=== PATIENT | male | born 1970 | race Caucasian/White ===

== ENCOUNTER 2021-05-30 15:05 | Emergency (ER) | payer OTHER ==
[~2021-05-30] VITALS: Ht 175.3 cm; Wt 113.4 kg
[~2021-05-30 15:05] MED LIST: FLUO40CA; NIAC-10; SIMV-13; TRAZ100T3
[2021-05-30] MEDS ORDERED: HYDR-3682 PO (15:50)
[2021-05-30 18:17] LABS: Basophils # (auto) 0.1 10 ^3/uL (0-0.2); Basophils % (auto) 0.4 % (0.0-2.0); Eosinophils # (auto) 0.2 10 ^3/uL (0-0.8); Eosinophils % (auto) 1.3 % (0.0-7.0); Hematocrit 52.4 % (41.0-53.0); Hemoglobin 18.4 g/dL (13.5-17.5); Lymphocytes # (auto) 2.4 10 ^3/uL (0.4-5.4); Lymphocytes % (auto) 19.7 % (10.0-50.0); Mean Corpuscular Hemoglobin 34.5 pg (28.0-32.0); Mean Corpuscular Hgb Conc. 35.1 g/dL (32.0-36.0); Mean Corpuscular Volume 98.2 fL (80.0-100.0); Monocytes # (auto) 0.8 10 ^3/uL (0-1.3); Monocytes % (auto) 6.5 % (0.0-12.0); Neutrophils # (auto) 8.6 10 ^3/uL (1.6-8.6); Neutrophils % (auto) 72.1 % (37.0-80.0); Nucleated Red Blood Cells % 0.1 %; Red Blood Cells 5.34 10^6/uL (4.5-5.90); Red Cell Distribution Width 13.3 % (11.8-14.3)
[2021-05-30 18:32] LABS: Potassium 4.3 mmol/L (3.5-5.1)
[2021-05-30 18:34] LABS: BUN/Creatinine Ratio 14.7
[2021-05-30 20:00] VITALS: BP 133/86
== END 2021-05-30 20:29 | disposition left against medical advice (07) ==
LOC: ER 15:05
DX: F41.9 Anxiety disorder, unspecified (principal); F17.210 Nicotine dependence, cigarettes, uncomplicated; F32.9 Major depressive disorder, single episode, unspecified; R94.31 Abnormal electrocardiogram [ECG] [EKG]; E78.5 Hyperlipidemia, unspecified; Z88.6 Allergy status to analgesic agent
CPT/HCPCS: 36415; 71046; 80048; 84443; 85025; 93005

== ENCOUNTER 2021-12-05 18:00 | Emergency (ER) | payer OTHER ==
[~2021-12-05] VITALS: Ht 175.3 cm; Wt 108.9 kg
[~2021-12-05 18:00] MED LIST changes: +HYDR-3682 PO
[2021-12-05] MEDS ORDERED: ALPRAZolam 0.5 MG TAB PO ONE (21:30)
[2021-12-05 22:07] VITALS: BP 124/76
[2021-12-05 22:30] LABS: Basophils # (auto) 0.1 10 ^3/uL (0-0.2); Basophils % (auto) 1.3 % (0.0-2.0); Eosinophils # (auto) 0.2 10 ^3/uL (0-0.8); Eosinophils % (auto) 2.1 % (0.0-7.0); Hematocrit 44.9 % (41.0-53.0); Hemoglobin 15.9 g/dL (13.5-17.5); Lymphocytes # (auto) 3.5 10 ^3/uL (0.4-5.4); Lymphocytes % (auto) 31.3 % (10.0-50.0); Mean Corpuscular Hemoglobin 35.1 pg (28.0-32.0); Mean Corpuscular Hgb Conc. 35.5 g/dL (32.0-36.0); Mean Corpuscular Volume 98.8 fL (80.0-100.0); Monocytes # (auto) 0.8 10 ^3/uL (0-1.3); Monocytes % (auto) 6.9 % (0.0-12.0); Neutrophils # (auto) 6.5 10 ^3/uL (1.6-8.6); Neutrophils % (auto) 58.4 % (37.0-80.0); Nucleated Red Blood Cells % 0.1 %; Red Blood Cells 4.54 10^6/uL (4.5-5.90); Red Cell Distribution Width 13.1 % (11.8-14.3); White Blood Cell 11.2 10^3/uL (4.4-10.8)
[2021-12-05 22:54] LABS: Potassium 4.1 mmol/L (3.5-5.1)
[2021-12-05 22:59] LABS: BUN/Creatinine Ratio 13.9; Calcium 11.4 mg/dL (8.5-10.1)
== END 2021-12-06 02:22 | disposition home or self-care (01) ==
LOC: ER 18:13
DX: F41.9 Anxiety disorder, unspecified (principal); F32.9 Major depressive disorder, single episode, unspecified; E78.5 Hyperlipidemia, unspecified; F17.210 Nicotine dependence, cigarettes, uncomplicated; Z88.6 Allergy status to analgesic agent
CPT/HCPCS: 36415; 80048; 84443; 85025

== ENCOUNTER 2021-12-18 15:48 | Emergency (ER) | payer OTHER ==
[~2021-12-18] VITALS: Ht 175.3 cm; Wt 108.9 kg
[2021-12-18] MEDS ORDERED: LORA0.5T20 PO (16:18)
[2021-12-18 16:25] VITALS: BP 125/74
[2021-12-18] MEDS: LORazepam 0.5 MG TAB PO ONE (16:34)
== END 2021-12-18 16:40 | disposition home or self-care (01) ==
LOC: ER 15:48
DX: F41.9 Anxiety disorder, unspecified (principal); F32.9 Major depressive disorder, single episode, unspecified; E78.5 Hyperlipidemia, unspecified; F17.210 Nicotine dependence, cigarettes, uncomplicated; Z88.8 Allergy status to other drugs, medicaments and biological substances

== ENCOUNTER 2022-01-17 11:50 | Emergency (ER) | payer OTHER ==
[~2022-01-17] VITALS: Ht 175.3 cm; Wt 110.0 kg
[~2022-01-17 11:50] MED LIST changes: +LORA0.5T20 PO
[2022-01-17] MEDS ORDERED: SODIUM CHLORIDE 0.9% 1,000 ML IV ONE ×2 (12:00)
[2022-01-17 12:43] LABS: Basophils # (auto) 0.1 10 ^3/uL (0-0.2); Basophils % (auto) 0.5 % (0.0-2.0); Eosinophils # (auto) 0.1 10 ^3/uL (0-0.8); Eosinophils % (auto) 1.2 % (0.0-7.0); Hematocrit 48.4 % (41.0-53.0); Hemoglobin 16.1 g/dL (13.5-17.5); Lymphocytes # (auto) 2.5 10 ^3/uL (0.4-5.4); Lymphocytes % (auto) 20.2 % (10.0-50.0); Mean Corpuscular Hemoglobin 32.9 pg (28.0-32.0); Mean Corpuscular Hgb Conc. 33.4 g/dL (32.0-36.0); Mean Corpuscular Volume 98.8 fL (80.0-100.0); Monocytes # (auto) 0.8 10 ^3/uL (0-1.3); Monocytes % (auto) 6.9 % (0.0-12.0); Neutrophils # (auto) 8.8 10 ^3/uL (1.6-8.6); Neutrophils % (auto) 71.2 % (37.0-80.0); Nucleated Red Blood Cells % 0.1 %; Red Cell Distribution Width 13.6 % (11.8-14.3); White Blood Cell 12.3 10^3/uL (4.4-10.8)
[2022-01-17 12:58] LABS: Albumin 3.8 g/dL (3.4-5.0); Calcium 11.4 mg/dL (8.5-10.1); Potassium 4.3 mmol/L (3.5-5.1)
[2022-01-17 13:02] LABS: BUN/Creatinine Ratio 13.1; Bilirubin, Total 0.3 mg/dL (0.2-1.0); Total Protein 7.2 g/dL (6.4-8.2)
[2022-01-17 14:45] VITALS: BP 122/74
== END 2022-01-17 13:59 | disposition home or self-care (01) ==
LOC: ER 11:50 → EDBD 11:50 → ER 13:59
DX: K40.90 Unilateral inguinal hernia, without obstruction or gangrene, not specified as recurrent (principal); N20.0 Calculus of kidney; I10 Essential (primary) hypertension; E78.5 Hyperlipidemia, unspecified; M10.9 Gout, unspecified; F17.210 Nicotine dependence, cigarettes, uncomplicated; Z79.899 Other long term (current) drug therapy; Z88.8 Allergy status to other drugs, medicaments and biological substances
CPT/HCPCS: 36415; 74176; 80053; 85025; 93005; 96360; 99285; J7030

== ENCOUNTER 2024-10-08 15:17 | Emergency (ER) | payer OTHER, MEDICAID ==
[~2024-10-08] VITALS: Ht 175.3 cm; Wt 116.0 kg
[~2024-10-08 15:17] MED LIST changes: +LORA-1121 PO; -LORA0.5T20 PO; -SIMV-13; +SIMV40TA18; +TRAZ-228; -TRAZ100T3
--- NOTE | 2024-10-08 15:56 | ED.PDOC ---
Psychiatric HPI Comments 53 year old male presents to the ED with chief complaint of SI. Patient reports that he has been having suicidal ideation for the past 5 days, being stressed mainly by a chronic pain to his left arm. Patient relays that he has had thoughts of SI in the past. Patient states he used to be on psych medication, however, he states they don't help him and he is no longer on them. Patient denies any other stressors, HI, AH, VH, dizziness, chest pain, or SOB. Time Seen by MD: 15:51 Primary Care Provider: none Reviewed Notes: Nurses Notes, Medications, Allergies Information Source: Patient Mode of Arrival: Ambulatory Severity: Able to Care for Self, Able to Control Self Severity of Pain: None Severity of Mental Status: Moderate Severity of Symptoms: Moderate Timing: Days Duration: Since onset Prehospital treatment: None Presents with: Depression, Suicidal Ideation Ingestion: None Circumstance: None Current substance abuse: None Stressors: None History of: Depression, Anxiety Past Medical History PAST MEDICAL HISTORY: Anxiety, Depression, Gout, High Lipids, HTN, Kidney Stones Surgical History (Other): Rt testicular surgery Family History Family History: Reviewed,noncontributory to illness Social History Smoker: Cigarettes, Greater Than 1 Pack/Day Alcohol: Denies ETOH Use Drugs: Denies Drug Use Lives In: Home Constitutional: denies: chills, diaphoresis, fatigue, fever, malaise, sweats, weakness, others EENTM: denies: blurred vision, double vision, ear bleeding, ear discharge, ear drainage, ear pain, ear ringing, eye pain, eye redness, hearing loss, mouth pain, mouth swelling, nasal discharge, nose bleeding, nose congestion, nose pain, photophobia, tearing, throat pain, throat swelling, voice changes, others Respiratory: denies: cough, hemoptysis, orthopnea, SOB at rest, shortness of breath, SOB with excertion, stridor, wheezing, others Cardiovascular: denies: chest pain, dizzy spells, diaphoresis, Dyspnea on exertion, edema, irregular heart beat, left arm pain, lightheadedness, palpitations, PND, syncope, others Gastrointestinal: denies: abdomen distended, abdominal pain, blood streaked bowels, constipated, diarrhea, dysphagia, difficulty swallowing, hematemesis, melena, nausea, poor appetite, poor fluid intake, rectal bleeding, rectal pain, vomiting, others Genitourinary: denies: burning, dysuria, flank pain, frequency, hematuria, incontinence, penile discharge, penile sore, pain, testicle pain, testicle swelling, urgency, others Neurological: denies: dizziness, fainting, headache, left sided numbness, left sided weakness, numbness, paresthesia, pre-existing deficit, right sided numbness, right sided weakness, seizure, speech problems, tingling, tremors, weakness, others Musculoskeletal: reports: others (Left arm pain); denies: back pain, gout, joint pain, joint swelling, muscle pain, muscle stiffness Integumetry: denies: bruises, change in color, change in hair/nails, dryness, laceration, lesions, lumps, rash, wounds, others Allergic/Immunocompromised: denies: Difficulty Healing, Frequent Infections, Hives, Itching, others Hematologic/Lymphatic: denies: anemia, blood clots, easy bleeding, easy bruising, swollen glands, others Endocrine: denies: excessive hunger, excessive sweating, excessive thirst, excessive urination, flushing, intolerance to cold, intolerance to heat, unexplained weight gain, unexplained weight loss, others Psychiatric: reports: suicidal; denies: anxiety, bipolar disorder, depression, hopeless, panic disorder, schizophrenia, sleepless, others All Other Systems: Reviewed and Negative Physical Exam General Appearance: Mild Distress HEENT: Normal ENT Inspection, Pharynx Normal, TMs Normal Neck: Full Range of Motion, Non-Tender, Normal, Normal Inspection Respiratory: Chest Non-Tender, Lungs Clear, No Accessory Muscle Use, No Respiratory Distress, Normal Breath Sounds Cardiovascular: No Edema, No JVD, No Murmur, No Gallop, Normal Peripheral Pulses, Regular Rate/Rhythm Breast Exam: Deferred Gastrointestinal: No Organomegaly, Non Tender, No Pulsatile Mass, Normal Bowel Sounds, Soft Genitalia: Deferred Pelvic: Deferred Rectal: Deferred Extremities: No calf tenderness, Normal capillary refill, Normal inspection, Normal range of motion, Non-tender, No pedal edema Musculoskeletal : Apperance: Normal Neurologic: Alert, 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 Was a procedure done?: No Psych Differential Dx Psych. Differential Dx: Suicidal Suicidal Differential Dx: Depression X-Ray, Labs, Meds, VS Vital Signs Date Time Temp Pulse Resp B/P (MAP) Pulse Ox O2 Delivery O2 Flow Rate FiO2 10/08/24 18:04 98.9 10/08/24 15:24 98.5 85 18 137/99 (112) 96 98.5 Lab Test 10/08/24 16:15 10/08/24 15:42 Range/Units Sodium Level 139 136-145 mmol/L Potassium Level 4.5 3.5-5.1 mmol/L Chloride Level 107 98-107 mmol/L Carbon Dioxide Level 25 20-31 mmol/L Anion Gap 7 5-15 Blood Urea Nitrogen 9 9-23 mg/dL Creatinine 1.16 0.700-1.30 mg/dL Glomerular Filtration Rate Calc 75 >90 mL/min BUN/Creatinine Ratio 7.8 L 10.0-20.0 Serum Glucose 141 H 74-106 mg/dL Calcium Level 12.7 H 8.7-10.4 mg/dL Plasma/Serum Blood Alcohol Pending Urine Color Yellow Yellow Urine Clarity Clear Clear Urine pH 6.5 5.0-9.0 Urine Specific [place] 1.014 1.001-1.035 Urine Protein Negative Negative Urine Ketones Negative Negative Urine Blood Negative Negative /uL Urine Nitrite Negative Negative Urine Bilirubin Negative Negative Urine Urobilinogen Normal Negative mg/dL Urine Leukocyte Esterase 1+ Negative /uL Urine RBC 1 0 - 3 /hpf Urine Microscopic WBC 6 H 0-3 /HPF Urine Squamous Epithelial Cells Few <5 /hpf Urine Bacteria None seen None Seen /hpf Urine Glucose Normal Normal mg/dL Urine Opiates Screen Pending Urine Fentanyl Screen Pending Urine Barbiturates Screen Pending Urine Phencyclidine Screen Pending Urine Amphetamines Screen Pending Urine Benzodiazepines Screen Pending Urine Cocaine Screen Pending Urine Cannabinoids Screen Pending Current Medications Medications (Trade) Dose Ordered Sig/Dhaval Route Start Time Stop Time Status Last Admin Acetaminophen (Tylenol Tablet) 650 mg ONCE ONCE PO 10/08/24 18:00 10/08/24 18:01 DC 10/08/24 18:04 The patient was given acetaminophen 650 mg by mouth The urine test is positive for a UTI The patient was given Cipro here in the emergency department's The patient's chemistry panel is within normal limits The glucose is 141 The patient was medically cleared The patient is awaiting a telemedicine psychiatry consult The patient will be signed out to Dr. Gold Images Reviewed?: Images reviewed and evaluated by me Time of 1ST Reevaluation: 21:06 Reevaluation 1ST: Unchanged Patient Education/Counseling: Diagnosis, Treatment, Prognosis Family Education/Counseling: No Family Present Additional Information -Reviewed patient's previous visit(s): 01/17/22 for abdominal pain - The following tests were ordered, and results were reviewed by me: ETOH, BMP, UA, UDS - Additional information was gathered from interviewing the following independent Historian: None - I reviewed and agreed with the following test results read by other provider: None - I discussed treatments and results with medical personnel and: patient Comprehensive systems review obtained and negative except for what is stated in the HPI. Departure 1 Departure Time of Disposition: 21:06 Impression: Primary Impression: Suicidal ideation Disposition: 30 STILL A PATIENT Condition: Fair Critical Care Note Critical Care Time?: No Stability Stability form required: No Heart Score Heart Score: Heart Score Response (Comments) Value History N/A 0 EKG N/A 0 Age N/A 0 Risk Factors N/A 0 Troponin N/A 0 Total 0 I personally scribed for HALEY SANDOVAL MD ([email or web address]) on 10/08/24 at 15:56. Electronically submitted by Freedom Fajardo ([email or web address]). I personally scribed for HALEY SANDOVAL MD ([email or web address]) on 10/08/24 at 17:00. Electronically submitted by Freedom Fajardo ([email or web address]). HALEY SANDOVAL MD Oct 08, 2024 15:56
[2024-10-08 16:12] LABS: Urine Bacteria None Seen /hpf (None Seen)
[2024-10-08 16:26] LABS: Urine Blood Negative /uL (Negative); Urine Clarity Clear (Clear); Urine Color Yellow (Yellow); Urine Protein, UAD Negative (Negative); Urine Specific Gravity 1.014 (1.001-1.035); Urine Squamous Epithelial Cell FEW /hpf (<5); Urine Urobilinogen Normal (Negative); Urine WBC 6 /HPF (0-3); Urine pH 6.5 (5.0-9.0)
[2024-10-08 16:39] LABS: Anion Gap 7 (5-15); Carbon Dioxide 25 mmol/L (20-31); Potassium 4.5 mmol/L (3.5-5.1); Sodium 139 mmol/L (136-145)
[2024-10-08 16:45] LABS: BUN/Creatinine Ratio 7.8 (10.0-20.0); Blood Urea Nitrogen 9 mg/dL (9-23)
[2024-10-08 16:56] LABS: Calcium 12.7 mg/dL (8.7-10.4); Chloride 107 mmol/L (98-107); Glucose 141 mg/dL (74-106)
[2024-10-08] MEDS: ACETAMINOPHEN 325 MG TAB PO ONE (18:04)
[2024-10-08] MEDS: CIPROFLOXACIN HCL 500 MG TAB PO ONE (21:35)
[2024-10-09] MEDS: ACETAMINOPHEN 325 MG TAB PO ONE (04:45)
--- NOTE | 2024-10-09 06:53 | DVHINCON2 ---
Date of Service if different f: Oct 09, 2024 Time of Service: 06:51 Consult Consult Note PSYCHIATRY ED NEW CONSULT HPI: 53 yo pt with PPH of depression and anxiety presents to ED BIBA for safety, psychiatric stabilization and possible med initiation/optimization in setting of shoulder pain, depression, and passive SI. Psychiatry consulted for safety evaluation and recommendations in context of current presentation. Of note, pt w/ recent ED visits for similar CC/presentation Per pt, reports hx of chronic depression often mixed with anxiety, over past several weeks experiencing worsening depressed mood, hopelessness, helplessness, negative thoughts, isolation, loss of interest, CAH to hurt self, decreased energy, difficulty with concentration, poor sleep, anhedonia, amotivation and non-specific anxiety symptoms. Also intermittent SI that are fleeting, earlier had plan to OD on pain meds although no intent. Reports some interference with daily functioning. Reports primary stress as recent/ongoing excruciating shoulder/arm pain that's radiating for past week and passing of his GF from cancer late last year. No overt manic, psychotic, cognitive, dissociative ph enomena, panic, or somatic symptoms noted. Pt currently does not have psychiatrist/therapist out in community although has sought outpt MH services in past. Currently not on any psychotropic agents for past several weeks due to poor compliance issues. Most recently rx'd abilify, effexor, trazodone. Denies self medicating mood symptoms with ETOH, THC or IDU Never , no children, unemployed, lives with friend, no legal issues, limited support system noted. Unknown trauma hx. Unknown FH No acute medical issues although complains of diffuse body aches, ongoing shoulder pain and multiple chronic medical issues. Denies hx of seizures/TBI, or recent head injuries, NKDA Does have hx of suicide attempts primarily via OD x 2 resulting in prior psych hospitalizations including most recent admission at [facility] last month for SI. Denies history of violence, unprovoked aggression, or assaultive behaviors. Denies recent hx of impulsivity, attention seeking behaviors, anger outbursts, emotional dysregulation, mood reactivity or engaging in risky behaviors. Does not have access to firearms. Currently endorses passive SI. Denies HI. MSE: General Appearance/Behavior: Alert and awake; appears older than stated age, overweight, fair grooming and hygiene; somewhat tearful, calm and cooperative, no PMA/PMR Speech: coherent, rrr Thought Process: linear, logical, bit hopeless Thought Content: Abnormal Thoughts and Perceptions: None Homicidality / Violent Thoughts: None Suicidality: passive SI Hallucinations: denies AVH Delusions: denies paranoia, persecutory, or grandiose delusions Obsessions /compulsions : None Judgment and Insight: fair/questionable judgment with somewhat fair insight Mood & Affect: "really depressed" with mood-congruent, somewhat restricte d/labile, appropriate Orientation: oriented to person, place, time Attention/Concentration: appears intact Memory: grossly intact Language: no unusual or inappropriate language A/P: 53 yo pt with PPH of depression and anxiety presents to ED BIBA for safety, psychiatric stabilization and possible med initiation/optimization in setting of shoulder pain, depression, and passive SI. Of note, pt w/ recent ED visits for similar CC/presentation Pt is currently expressing some SI with moderate interference in daily functioning in context of several recent life stressors and acute/ongoing shoulder and body pain (see hpi). Limited protective factors presently. Not on any psychotropics for past several weeks which maybe contributing to current symptoms. No outpt MH services at present. Pt agrees to talk with staff instead of acting on any suicidal feelings while in ED. Thus, acute risk is low/moderate and hence is appropriate for inpatient psychiatry admission. Pt will benefit from inpatient psych admission for safety, psychiatric stabilization and possible medication re-initiation. Pt willing to transfer to inpt psych hospitalization voluntarily. Consider 5150 hold for DTS ONLY if needed for transfer or if no voluntary beds are available Primary Diagnosis: Adjustment disorder with depressed mood. Depressive disorder unspecified. R/o Somatoform disorder Recommend vol transfer to inpt psych facility for higher level of care 1:1 sitter is recommended Recommend starting Buspar 15 mg bid and Duloxetine 30 mg bid - first dose of both meds now One time dose of ativan 1 mg po now per pts request Risks/benefits/alternative treatments discussed, informed consent provided by pt If patient later refuses voluntary hospitalization/requests to be discharged from ED prior to transfer, pt can be discharged WITHOUT a psych reassessment or 5150 evaluation Pt verbalized understanding and is receptive to above tx plan This case was discussed with ED nurse/provider and all parties in agreement with above tx plan Madan Bond MD Plan discussed with: Patient MADAN BOND MD Oct 09, 2024 06:53
[2024-10-09] MEDS: LORazepam 0.5 MG TAB PO ONE (09:20)
[2024-10-09] MEDS: DULoxetine HCL 30 MG CAP PO ONE (10:47)
[2024-10-09] MEDS: busPIRone HCL 10 MG TAB PO SCH (10:47)
[2024-10-09 15:44] LABS: Amphetamine Screen, Urine Neg (NEGATIVE); Barbiturate Scree,Urine Neg (NEGATIVE); Benzodiazephine Screen, Urine Neg (NEGATIVE); Cannabinoid Screen, Urine Neg (NEGATIVE); Cocaine Screen, Urine Neg (NEGATIVE); Opiate Scree,Urine Neg (NEGATIVE); Phencyclidine Screen, Urine Neg (NEGATIVE)
[2024-10-09 16:24] LABS: Blood Alcohol < 3.0 mg/dL (<10)
[2024-10-09 17:50] VITALS: BP 143/84; PULSE 94; RESP 20; TEMP 98.6; O2SAT 96
== END 2024-10-09 17:54 | disposition short-term general hospital (02) ==
LOC: ER 15:17
DX: R45.851 Suicidal ideations (principal); F41.9 Anxiety disorder, unspecified; I10 Essential (primary) hypertension; F17.210 Nicotine dependence, cigarettes, uncomplicated; Z98.890 Other specified postprocedural states; Z79.899 Other long term (current) drug therapy
CPT/HCPCS: 36415; 80048; 80307; 80320; 81001

== ENCOUNTER 2024-11-02 14:19 | Emergency (ER) | payer OTHER, MEDICAID ==
[~2024-11-02] VITALS: Ht 175.3 cm; Wt 117.5 kg
--- NOTE | 2024-11-02 14:58 | ED.PDOC ---
Psychiatric HPI Comments 53M presents to the ER w/ prior MHx of Kidney Stones, Thyroid, High lipids, Prostate Problems, DM, HTN, Anxiety, Depression Gout;SHx of Right Testicle Sx and the c/c of SI. Pt reports that he wants to kill himself for "quite a while", but mostly due from his prostate problems and testicle pain. Pt states that he is homicidal as well. Family Hx of Cancer. Denies chills, fever, N/V/D, SOB, CP. No other associated symptoms, modifiers, recent injuries or sick contacts present at this time. Chief Complaint: Suicidal Time Seen by MD: 14:50 Primary Care Provider: NONE Reviewed Notes: Nurses Notes, Medications, Allergies Information Source: Patient Mode of Arrival: Ambulatory Severity: Unable to Care for Self Severity of Pain: None Severity of Mental Status: Moderate Severity of Symptoms: None Timing: Came on: Gradually Duration: Since onset Prehospital treatment: None Presents with: Suicidal Ideation, Homicidal Ideation Ingestion: None Circumstance: None Current substance abuse: None Stressors: None History of: Depression, Anxiety, Suicidal Attempt Quality: None Location: None Location of pain or injury: None Associated signs and symptoms: None Past Medical History PAST MEDICAL HISTORY: Anxiety, Depression, DM, Gout, High Lipids, HTN, Kidney Stones, Thyroid Past Medical History (Other): Prostate Problems Surgical History (Other): Right Testicle pain Family History Family History: Reviewed,noncontributory to illness, Family hx of Cancer Social History Smoker: Non-Smoker Alcohol: Denies ETOH Use Drugs: Denies Drug Use Lives In: Home Constitutional: denies: chills, diaphoresis, fatigue, fever, malaise, sweats, w eakness, others EENTM: denies: blurred vision, double vision, ear bleeding, ear discharge, ear drainage, ear pain, ear ringing, eye pain, eye redness, hearing loss, mouth pain, mouth swelling, nasal discharge, nose bleeding, nose congestion, nose pain, photophobia, tearing, throat pain, throat swelling, voice changes, others Respiratory: denies: cough, hemoptysis, orthopnea, SOB at rest, shortness of breath, SOB with excertion, stridor, wheezing, others Cardiovascular: denies: chest pain, dizzy spells, diaphoresis, Dyspnea on exertion, edema, irregular heart beat, left arm pain, lightheadedness, palpitations, PND, syncope, others Gastrointestinal: denies: abdomen distended, abdominal pain, blood streaked bowels, constipated, diarrhea, dysphagia, difficulty swallowing, hematemesis, melena, nausea, poor appetite, poor fluid intake, rectal bleeding, rectal pain, vomiting, others Genitourinary: reports: testicle pain; denies: burning, dysuria, flank pain, frequency, hematuria, incontinence, penile discharge, penile sore, pain, testicle swelling, urgency, others Neurological: denies: dizziness, fainting, headache, left sided numbness, left sided weakness, numbness, paresthesia, pre-existing deficit, right sided numbness, right sided weakness, seizure, speech problems, tingling, tremors, weakness, others Musculoskeletal: denies: back pain, gout, joint pain, joint swelling, muscle pain, muscle stiffness, neck pain, others Integumetry: denies: bruises, change in color, change in hair/nails, dryness, laceration, lesions, lumps, rash, wounds, others Allergic/Immunocompromised: denies: Difficulty Healing, Frequent Infections, Hives, Itching, others Hematologic/Lymphatic: denies: anemia, blood clots, easy bleeding, easy bruising, swollen glands, others Endocrine: denies: excessive hunger, excessive sweating, excessive thirst, excessive urination, flushing, intolerance to cold, intolerance to heat, unexplained weight gain, unexplained weight loss, others Psychiatric: reports: suicidal; denies: anxiety, bipolar disorder, depression, hopeless, panic disorder, schizophrenia, sleepless, others All Other Systems: Reviewed and Negative Physical Exam General Appearance: Mild Distress HEENT: Normal ENT Inspection, Pharynx Normal, TMs Normal Neck: Full Range of Motion, Non-Tender, Normal, Normal Inspection Respiratory: Chest Non-Tender, Lungs Clear, No Accessory Muscle Use, No Respiratory Distress, Normal Breath Sounds Cardiovascular: No Edema, No JVD, No Murmur, No Gallop, Normal Peripheral Pulses, Regular Rate/Rhythm Breast Exam: Deferred Gastrointestinal: No Organomegaly, Non Tender, No Pulsatile Mass, Normal Bowel Sounds, Soft Genitalia: Testicle (Right testicular tenderness with some mild swelling) Pelvic: Deferred Rectal: Deferred Extremities: No calf tenderness, Normal capillary refill, Normal inspection, Normal range of motion, Non-tender, No pedal edema Musculoskeletal : Apperance: Normal 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 Was a procedure done?: No Psych Differential Dx Psych. Differential Dx: Sleepless, Suicidal, Other (Homicidal) OD Differential Dx: Depression X-Ray, Labs, Meds, VS Vital Signs Date Time Temp Pulse Resp B/P (MAP) Pulse Ox O2 Delivery O2 Flow Rate FiO2 11/02/24 14:35 97.0 110 18 155/100 (118) 96 97.0 Lab Test 11/02/24 14:50 Range/Units Plasma/Serum Blood Alcohol < 3.0 <10 mg/dL The alcohol level is less than three The patient is going to be signed out to Dr. Gold The patient was pending the testicular ultrasound as well as the UDS The patient was also pending the urine test At this time, the patient understands that we will be evaluating him for possible 5150 hold Time of 1ST Reevaluation: 15:20 Reevaluation 1ST: Unchanged Patient Education/Counseling: Diagnosis, Treatment, Prognosis Family Education/Counseling: No Family Present Departure 1 Departure Time of Disposition: 16:23 Impression: Primary Impression: Suicidal ideation Disposition: 30 STILL A PATIENT Condition: Fair Critical Care Note Critical Care Time?: No Stability Stability form required: No Heart Score Heart Score: Heart Score Response (Comments) Value History N/A 0 EKG N/A 0 Age N/A 0 Risk Factors N/A 0 Troponin N/A 0 Total 0 I personally scribed for HALEY SANDOVAL MD ([email or web address]) on 11/02/24 at 14:58. Electronically submitted by Paul Milian ([email or web address]). HALEY SANDOVAL MD November 02, 2024 14:58
--- NOTE | 2024-11-02 17:09 | DVH ---
ULTRASOUND OF SCROTUM AND CONTENTS. INDICATION: Right testicular swelling COMPARISON: None TECHNIQUE: Multiple real-time grayscale sonographic and color and duplex Doppler images of the scrotu m and its contents were obtained. FINDINGS: RIGHT TESTICLE: Measures 3.2 x 2 x 2.5 cm. Normal blood flow no hydrocele LEFT TESTICLE: Measures 3.8 X 2.7 X 2.6 CM Normal blood flow no hydrocele. Both testicles demonstrate homogeneous echotexture without evidence of focal lesions. The right epididymal head measures 11.4 mm cm. The left epididymal head measures 15.4 mm. There is a 6.1 x 5.8 x 6 mm cyst in the left epididymis Subsequent color and duplex Doppler interrogation of the testes demonstrated symmetric normal vascula r flow to both testicles. No focal areas of hyperemia were seen. IMPRESSION: 1. 3.2 cm long right testicle. 3.8 cm long left testicle 2. No testicular torsion or testicular masses 3. Right epididymis measures 11.4 mm; left epididymis measures 15.4 mm 4. Left epididymal cyst measures 6.1 by 5.8 x 6 mm.
[2024-11-02 18:04] LABS: Urine Bacteria FEW /hpf (None Seen); Urine Blood 1+ /uL (Negative); Urine Clarity Turbid (Clear); Urine Color Light-Yellow (Yellow); Urine Mucus FEW (None Seen); Urine Protein, UAD Negative (Negative); Urine Specific Gravity 1.011 (1.001-1.035); Urine Squamous Epithelial Cell FEW /hpf (<5); Urine Urobilinogen Normal (Negative); Urine WBC 10 /HPF (0-3)
[2024-11-02 18:21] LABS: Amphetamine Screen, Urine Neg (NEGATIVE); Barbiturate Scree,Urine Neg (NEGATIVE); Benzodiazephine Screen, Urine Neg (NEGATIVE); Cannabinoid Screen, Urine Neg (NEGATIVE); Cocaine Screen, Urine Neg (NEGATIVE); Opiate Scree,Urine Neg (NEGATIVE); Phencyclidine Screen, Urine Neg (NEGATIVE)
[2024-11-02] MEDS: LORazepam 0.5 MG TAB PO ONE (21:46)
[2024-11-02] MEDS: GABAPENTIN 300 MG CAP PO ONE (22:43)
[2024-11-02] MEDS: ACETAMINOPHEN 500 MG TAB or CAP PO ONE (22:44)
--- NOTE | 2024-11-02 23:42 | DVH ---
CLINICAL INDICATION: Left shoulder pain TECHNIQUE: XY L SHOULDER 2+ VIEW XRAY Comparison: None FINDINGS/IMPRESSION: : There is no evidence of acute fracture or dislocation. Soft tissues are unremarkable.
--- NOTE | 2024-11-03 02:26 | DVHINCON2 ---
Date of Service if different f: November 03, 2024 Time of Service: 02:13 Consult Consult Note PSYCHIATRY ED NEW CONSULT HPI: 53 yo pt with PPH of depression and anxiety presents to ED BIB friend for safety, psychiatric stabilization and possible med initiation/optimization in setting of ongoing body/shoulder pain, depression, and passive SI. Psychiatry consulted for safety evaluation and recommendations in context of current presentation. Of note, pt w/ recent ED visits for similar CC/presentation Per pt, reports over past several weeks experiencing ongoing depressed mood, hopelessness, helplessness, negative thoughts, isolation, loss of interest, CAH to hurt self, decreased energy, amotivation and non-specific anxiety symptoms. Also intermittent SI that are fleeting, earlier had plan to OD on pain meds although no intent, also reports HI towards no one in specific. Reports some interference with daily functioning. Reports primary stress as recent/ongoing excruciating shoulder/testicular/foot pain that's radiating for past several months and passing of his GF from cancer late last year. No overt manic, psychotic, cognitive, dissociative phenomena, panic, or somatic symptoms noted. Pt currently does not have psychiatrist/therapist out in community although has sought outpt MH services in past. Currently rx'd Buspar 15 mg bid, Duloxetine 30 mg bid, quetiapine 50 mg qhs, and Gabapentin 600 mg tid, remains overall med compliant although c/o diaphoresis 2/2 gabapentin, does have hx of med noncompliance. Prior psych meds include abilify, effexor, trazodone. Denies self medicating mood symptoms with ETOH, THC or IDU Never , no children, unemployed, lives with friend, no legal issues, limited support system noted. Unknown trauma hx. Unknown FH No acute medical issues although complains of diffuse body aches, ongoing shoulder/foot pain and multiple chronic medical issues. Denies hx of seizures/TBI, or recent head injuries, NKDA Does have hx of suicide attempts primarily via OD x 2 resulting in prior psych hospitalizations including most recent admission at [facility] last month for SI. Denies history of violence, unprovoked aggression, or assaultive behaviors. Denies recent hx of impulsivity, attention seeking behaviors, anger outbursts, emotional dysregulation, mood reactivity or engaging in risky behaviors. Does not have access to firearms. Currently endorses passive SI/HI and AH MSE: General Appearance/Behavior: Alert and awake; appears older than stated age, overweight/obese, fair grooming and hygiene; intermittently tearful, calm and cooperative, no PMA/PMR Speech: coherent, rrr Thought Process: linear, logical, bit hopeless Thought Content: Abnormal Thoughts and Perceptions: None Homicidality / Violent Thoughts: passive HI (no one in specific) Suicidality: passive SI Hallucinations: +AH Delusions: denies paranoia, persecutory, or grandiose delusions Obsessions /compulsions : None Judgment and Insight: fair/questionable judgment with somewhat fair insight Mood & Affect: "still depressed" with mood-congruent, bit labile, appropriate Orientation: oriented to person, place, time Attention/Concentration: appears intact Memory: grossly intact Language: no unusual or inappropriate language A/P: 53 yo pt with PPH of depression and anxiety presents to ED BIB friend for safety, psychiatric stabilization and possible med initiation/optimization in setting of ongoing body/shoulder pain, depression, and passive SI. Psychiatry consulted for safety evaluation and recommendations in context of current presentation. Of note, pt w/ recent ED visits for similar CC/presentation Pt is currently expressing some SI in context of several recent life stressors and acute/ongoing shoulder/testicular/foot and body pain (see hpi) - pt may have underlying somatoform disorder. Limited protective factors presently. No outpt MH services at present. Pt agrees to talk with staff instead of acting on any suicidal feelings while in ED. Thus, acute risk is low/moderate and hence is appropriate for inpatient psychiatry admission. Pt will benefit from inpatient psych admission for safety, psychiatric stabilization and possible medication optimization. Pt willing to transfer to inpt psych hospitalization voluntarily. Consider 5150 hold for DTS ONLY if needed for transfer or if no voluntary beds are available Primary Diagnosis: Adjustment disorder with depressed mood. Depressive disorder unspecified. R/o Somatoform disorder Recommend vol transfer to inpt psych facility for higher level of care 1:1 sitter is not recommended Recommend continuing current outpt med regimen - Buspar 15 mg bid, Duloxetine 30 mg bid, quetiapine 50 mg qhs, and Gabapentin 600 mg tid - first dose of all meds now Defer any med changes/adjustments to inpt psych facility Risks/benefits/alternative treatments discussed, informed consent provided by pt If patient later refuses voluntary hospitalization/requests to be discharged from ED prior to transfer, pt can be discharged WITHOUT a psych reassessment or 5150 evaluation Pt verbalized understanding and is receptive to above tx plan This case was discussed with ED nurse/provider and all parties in agreement with above tx plan Madan Bond MD Plan discussed with: Patient MADAN BOND MD November 03, 2024 02:26
[2024-11-03] MEDS: busPIRone HCL 10 MG TAB PO SCH (03:00)
[2024-11-03] MEDS: GABAPENTIN 300 MG CAP PO SCH (15:07)
--- NOTE | 2024-11-03 16:55 | ED.PDOC ---
Departure 1 Departure Time of Disposition: 16:54 (Patient is resting comfortably in still awaiting placement.) Impression: Primary Impression: Suicidal ideation Disposition: 30 STILL A PATIENT Condition: DENVER Lopez MD November 03, 2024 16:55
[2024-11-03 19:51] VITALS: PULSE 70; RESP 19; O2SAT 98
[2024-11-03] MEDS: DULoxetine HCL 30 MG CAP PO SCH (22:00)
[2024-11-03] MEDS: QUEtiapine FUMARATE 25 MG TAB PO SCH (22:24)
[2024-11-04 19:29] VITALS: PULSE 69; RESP 18; O2SAT 99
--- NOTE | 2024-11-05 10:41 | ED.PDOC ---
Departure 1 Departure Time of Disposition: 10:41 (Patient is still awaiting placement. Patient is resting comfortably.) Impression: Primary Impression: Suicidal ideation Disposition: 30 STILL A PATIENT Condition: DENVER Lopez MD November 05, 2024 10:41
[2024-11-05 11:11] LABS: Basophils # (auto) 0.1 10 ^3/uL (0-0.2); Eosinophils # (auto) 0.3 10 ^3/uL (0-0.8); Hemoglobin 16.2 g/dL (13.5-17.5); Monocytes # (auto) 0.8 10 ^3/uL (0-1.3)
[2024-11-05 11:13] LABS: Eosinophils % (auto) 3.2 % (0.0-7.0); Lymphocytes # (auto) 2.6 10 ^3/uL (0.4-5.4); Lymphocytes % (auto) 28.8 % (10.0-50.0); Mean Corpuscular Hemoglobin 34.8 pg (28.0-32.0); Mean Corpuscular Volume 96.8 fL (80.0-100.0); Monocytes % (auto) 8.9 % (0.0-12.0); Neutrophils # (auto) 5.2 10 ^3/uL (1.6-8.6); Neutrophils % (auto) 58.1 % (37.0-80.0); Nucleated Red Blood Cells % 0.3 %; Platelet Count (auto) 259 10^3/uL (140-450); Red Blood Cells 4.65 10^6/uL (4.5-5.90); Red Cell Distribution Width 13.4 % (11.8-14.3); White Blood Cell 8.9 10^3/uL (4.4-10.8)
[2024-11-05 11:19] LABS: Sodium 141 mmol/L (136-145)
[2024-11-05 11:20] LABS: Anion Gap 7 (5-15); Carbon Dioxide 25 mmol/L (20-31)
[2024-11-05 11:26] LABS: BUN/Creatinine Ratio 19.1 (10.0-20.0); Blood Urea Nitrogen 22 mg/dL (9-23)
[2024-11-05 11:35] LABS: Calcium 12.2 mg/dL (8.7-10.4); Chloride 109 mmol/L (98-107); Glucose 154 mg/dL (74-106)
[2024-11-05] MEDS ORDERED: cloNIDine HCL 0.1 MG TAB ONE (12:06)
[2024-11-05] MEDS ORDERED: TAMSULOSIN HYDROCHLORIDE 0.4 MG CAP PO ONE (12:06)
[2024-11-05] MEDS: metFORMIN HYDROCHLORIDE 500 MG TAB PO SCH (12:08)
[2024-11-05] MEDS: TAMSULOSIN HYDROCHLORIDE 0.4 MG CAP PO SCH (12:09)
[2024-11-05 16:14] VITALS: BP 146/97; PULSE 68; RESP 18; TEMP 97.9; O2SAT 96
[2024-11-05] MEDS ORDERED: cloNIDine HCL 0.1 MG TAB PO SCH (22:00)
[2024-11-06] MEDS ORDERED: ALLOPURINOL 100 MG TAB PO SCH (10:00)
== END 2024-11-05 16:18 | disposition short-term general hospital (02) ==
LOC: ER 14:19
DX: R45.851 Suicidal ideations (principal); N50.811 Right testicular pain; I10 Essential (primary) hypertension; E11.9 Type 2 diabetes mellitus without complications; M10.9 Gout, unspecified; E78.5 Hyperlipidemia, unspecified; F41.9 Anxiety disorder, unspecified; F32.9 Major depressive disorder, single episode, unspecified; Z98.890 Other specified postprocedural states; Z79.899 Other long term (current) drug therapy
CPT/HCPCS: 36415; 73030; 76870; 80048; 80307; 80320; 81001; 85025

== ENCOUNTER 2025-01-19 21:47 | Emergency (ER) | payer OTHER, MEDICAID ==
[~2025-01-19] VITALS: Ht 175.3 cm; Wt 118.2 kg
--- NOTE | 2025-01-19 22:36 | ED.PDOC ---
History of Present Illness HPI Comments 54 y/o M present with c/c suicidal ideations. Patient was [id number] ambulance from private residence for initial c/c of right thigh and leg pain after having no relief following maximizing his prescribed Gabapentin medication dosage that he, usually, takes for the pain. Upon arrival to ED, patient began endorsing on having desires to end his life with no concrete plan in place or recent attempts. Pertinent medical history of anxiety, depression, suicidal ideations, chronic pain syndrome, and gout. Vitals were noted to have been stable and within normal limits. Patient denies any homicidal ideations, auditory or visual hallucinations, weakness, numbness, tingling, or further associated symptoms. Chief Complaint: Suicidal Time Seen by MD: 22:00 Primary Care Provider: DENIES Reviewed Notes: Nurses Notes, Laceworker Notes, Medications, Allergies Allergies: Coded Allergies: Ketorolac (Verified Allergy, Severe, 05/19/13) Tromethamine (Verified Allergy, Severe, 05/19/13) Thioridazine (Verified Allergy, Unknown, 11/02/24) Home Meds Active Scripts Lorazepam (ATIVAN TABLET) 0.5 Mg Tb, 1 TAB PO DAILY for 5 Days, #5 TAB Prov:ZECHARIAH CALVO MD 12/18/21 Hydroxyzine Hcl (Hydroxyzine Hcl) 25 Mg Tab, 1 TAB PO Q8HPRN PRN for 7 Days, #21 TAB Caution if taking with trazodone as it will augment the sedation it causes. Prov:LINDA MANCILLA MD 05/30/21 Reported Medications Fluoxetine Hcl (Fluoxetine Hcl) 40 Mg Cap, #30 05/19/13 Trazodone Hcl (Trazodone Hcl) 100 Mg Tab, #60 05/19/13 Simvastatin (Simvastatin) 40 Mg Tab, #30 05/19/13 Niacin (Antihyperlipidemic) (Niaspan) 500 Mg Tab, #30 05/19/13 Information Source: Patient, Emergency Med Personnel Mode of Arrival: EMS Severity: Moderate Timing: Minutes Duration: Since onset Prehospital treatment: 12 Lead EKG, Accucheck, Electric Power Line Examiner Past Medical History PAST MEDICAL HISTORY: Anxiety, Depression, DM, Gout, High Lipids, HTN, Kidney Stones, Thyroid Past Medical History (Other): BPH Chronic pain syndrome Suicidal ideations Surgical History (Other): Right Testicle Sx Family History Family History: Reviewed,noncontributory to illness, Family hx of Cancer Social History Smoker: Non-Smoker Alcohol: Denies ETOH Use Drugs: Denies Drug Use Lives In: Home All Other Systems: Reviewed and Negative (Comprehensive systems review obtained and negative except for what is stated in the HPI.) Physical Exam General Appearance: No Apparent Distress, Obese HEENT: Normal ENT Inspection, Pharynx Normal, TMs Normal Neck: Full Range of Motion, Non-Tender, Normal, Normal Inspection Respiratory: Chest Non-Tender, Lungs Clear, No Accessory Muscle Use, No Respiratory Distress, Normal Breath Sounds Cardiovascular: No Edema, No JVD, No Murmur, No Gallop, Normal Peripheral Pulses, Regular Rate/Rhythm Breast Exam: Deferred Gastrointestinal: No Organomegaly, Non Tender, No Pulsatile Mass, Normal Bowel Sounds, Soft Genitalia: Deferred Pelvic: Deferred Rectal: Deferred Extremities: No calf tenderness, Normal capillary refill, Normal inspection, Normal range of motion, Non-tender, No pedal edema Musculoskeletal : Apperance: Normal Neurologic: Alert, landscape painter II-XII nml as Tested, No Motor Deficits, Normal Mood, No Sensory Deficits, Other (Anxious affect ) Cerebellar Function: Normal Reflexes: Normal Skin: Dry, Normal Color, Warm Lymphatic: No Adenopathy Was a procedure done? Was a procedure done?: No Differential Dx Considerations may include: suicidal, depression, hopelessness, anxiety, chronic pain syndrome, pain drug seeking behavior, among others X-Ray, Labs, Meds, VS Vital Signs Date Time Temp Pulse Resp B/P (MAP) Pulse Ox O2 Delivery O2 Flow Rate FiO2 01/19/25 21:52 98.0 88 16 165/78 (107) 98 98.0 Lab Test 01/19/25 22:13 Range/Units White Blood Count 12.2 H 4.4-10.8 10^3/uL Red Blood Count 4.77 4.5-5.90 10^6/uL Hemoglobin 15.9 13.5-17.5 g/dL Hematocrit 46.0 41.0-53.0 % Mean Corpuscular Volume 96.4 80.0-100.0 fL Mean Corpuscular Hemoglobin 33.4 H 28.0-32.0 pg Mean Corpuscular Hemoglobin Concent 34.6 32.0-36.0 g/dL Red Cell Distribution Width 14.0 11.8-14.3 % Platelet Count 398 140-450 10^3/uL Mean Platelet Volume 7.3 6.9-10.8 fL Neutrophils (%) (Auto) 68.8 37.0-80.0 % Lymphocytes (%) (Auto) 21.7 10.0-50.0 % Monocytes (%) (Auto) 7.9 0.0-12.0 % Eosinophils (%) (Auto) 0.6 0.0-7.0 % Basophils (%) (Auto) 1.0 0.0-2.0 % Neutrophils # (Auto) 8.4 1.6-8.6 10 ^3/uL Lymphocytes # (Auto) 2.6 0.4-5.4 10 ^3/uL Monocytes # (Auto) 1.0 0-1.3 10 ^3/uL Eosinophils # (Auto) 0.1 0-0.8 10 ^3/uL Basophils # (Auto) 0.1 0-0.2 10 ^3/uL Nucleated Red Blood Cells 0.0 % Sodium Level 137 136-145 mmol/L Potassium Level 3.8 3.5-5.1 mmol/L Chloride Level 104 98-107 mmol/L Carbon Dioxide Level 22 20-31 mmol/L Anion Gap 11 5-15 Blood Urea Nitrogen 13 9-23 mg/dL Creatinine 1.26 0.700-1.30 mg/dL Glomerular Filtration Rate Calc 67 >90 mL/min BUN/Creatinine Ratio 10.3 10.0-20.0 Serum Glucose 146 H 74-106 mg/dL Calcium Level 12.8 H 8.7-10.4 mg/dL Salicylates Level < 3.0 -30 mg/dL Acetaminophen Level < 2.0 L 10.0-20.0 UG/ML Plasma/Serum Blood Alcohol < 3.0 <10 mg/dL Current Medications Medications (Trade) Dose Ordered Sig/Dhaval Route Start Time Stop Time Status Last Admin Acetaminophen/ Hydrocodone Bitart (Chunky 5/325MG Tab) 1 tab ONCE ONCE PO 01/20/25 00:00 01/20/25 00:01 DC 01/20/25 00:15 Time of 1ST Reevaluation: 22:30 Reevaluation 1ST: Unchanged Patient Education/Counseling: Other (ED observation ) Family Education/Counseling: No Family Present Additional Information Previous visits reviewed: UA, CBC, BMP, salicylate, acetaminophen, blood alcohol, drug screen The following tests were ordered, and results were reviewed by me: N/A Additional Information was gathered from interviewing the following independent historians: EMS I reviewed and agreed with the following test results read by other providers: N/A I discussed treatment and results with medical personnel and: patient SEPSIS Sepsis Screen Date sepsis recognized/suspect: Jan 19, 2025 Time Sepsis recognized/suspect: 2151 Recent Procedure: No On Antibiotic Therapy: No Respiratory Rate >20: No Heart Rate >90: No Temp<36 C (96.8 F) or >38.3 C: No SBP <90 or MAP <65 mmHG: No New Acute Mental Status Change: No Is the patient on CPAP, BIPAP,: No Physician Orders Drug Screen (01/19/25 22:06) Urinalysis (01/19/25 22:06) Soc Telemed Psych Consult (01/19/25 22:06) Vital Signs Date Time Temp Pulse Resp B/P (MAP) Pulse Ox O2 Delivery O2 Flow Rate FiO2 01/19/25 21:52 98.0 88 16 165/78 (107) 98 98.0 Laboratory Tests Test 01/19/25 22:13 White Blood Count 12.2 10^3/uL (4.4-10.8) H Medications Medications Dose Ordered Sig/Dhaval Route Start Time Stop Time Status Last Admin Dose Admin Acetaminophen/ Hydrocodone Bitart 1 tab ONCE ONCE PO 01/20/25 00:00 01/20/25 00:01 DC 01/20/25 00:15 Departure 1 Departure Time of Disposition: 04:58 (Patient is medically cleared. Psychiatry recommends voluntary psychiatric hospitalization.) Impression: Primary Impression: Suicide ideation Disposition: [facility] Condition: Serious Critical Care Note Critical Care Time?: Yes Critical care comment: Suicide ideation Authorized and Performed by: Denver Perez MD Total critical care time: Approximately 38 minutes Due to a high probability of clinically significant, life threatening deterioration, the patient required my highest level of preparedness to intervene emergently and I personally spent this critical care time directly and personally managing the patient. This critical care time included obtaining a history; examining the patient; pulse oximetry; ordering and review of studies; arranging urgent treatment with development of a management plan; evaluation of patient's response to treatment; frequent reassessment; and, discussions with other providers. This critical care time was performed to assess and manage the high probability of imminent, life-threatening deterioration that could result in multi-organ failure. It was exclusive of separately billable procedures and treating other patients and teaching time. Please see my other sections and the rest of the note for further information on patient assessment and treatment. Stability Stability form required: No Heart Score Heart Score: Heart Score Response (Comments) Value History N/A 0 EKG N/A 0 Age N/A 0 Risk Factors N/A 0 Troponin N/A 0 Total 0 I personally scribed for DENVER PEREZ MD ([email or web address]) on 01/19/25 at 22:36. Electronically submitted by Madan Borden ([email or web address]). DENVER PEREZ MD Jan 19, 2025 22:36
[2025-01-19 22:41] LABS: Hematocrit 46.0 % (41.0-53.0); Hemoglobin 15.9 g/dL (13.5-17.5); Mean Corpuscular Hemoglobin 33.4 pg (28.0-32.0); Mean Corpuscular Volume 96.4 fL (80.0-100.0); Nucleated Red Blood Cells % 0.0 %
[2025-01-19 22:43] LABS: Chloride 104 mmol/L (98-107); Potassium 3.8 mmol/L (3.5-5.1); Sodium 137 mmol/L (136-145)
[2025-01-19 22:44] LABS: Anion Gap 11 (5-15); Carbon Dioxide 22 mmol/L (20-31)
[2025-01-19 22:45] LABS: Calcium 12.8 mg/dL (8.7-10.4)
[2025-01-19 22:49] LABS: BUN/Creatinine Ratio 10.3 (10.0-20.0); Blood Urea Nitrogen 13 mg/dL (9-23)
[2025-01-19 22:51] LABS: Acetaminophen < 2.0 UG/ML (10.0-20.0); Glucose 146 mg/dL (74-106); Salicylate < 3.0 mg/dL (-30)
[2025-01-20] MEDS: HYDROcodone-ACET 5/325MG TAB PO ONE ×2 (00:15→05:57)
--- NOTE | 2025-01-20 00:34 | DVHINCON2 ---
Date of Service if different f: Jan 20, 2025 Time of Service: 00:18 Consultation ([facility]) Consulting Physician: KAYLEEN REYES MD Labs Laboratory Tests Test 01/19/25 22:13 White Blood Count 12.2 10^3/uL (4.4-10.8) Red Blood Count 4.77 10^6/uL (4.5-5.90) Hemoglobin 15.9 g/dL (13.5-17.5) Hematocrit 46.0 % (41.0-53.0) Mean Corpuscular Volume 96.4 fL (80.0-100.0) Mean Corpuscular Hemoglobin 33.4 pg (28.0-32.0) Mean Corpuscular Hemoglobin Concent 34.6 g/dL (32.0-36.0) Red Cell Distribution Width 14.0 % (11.8-14.3) Platelet Count 398 10^3/uL (140-450) Mean Platelet Volume 7.3 fL (6.9-10.8) Neutrophils (%) (Auto) 68.8 % (37.0-80.0) Lymphocytes (%) (Auto) 21.7 % (10.0-50.0) Monocytes (%) (Auto) 7.9 % (0.0-12.0) Eosinophils (%) (Auto) 0.6 % (0.0-7.0) Basophils (%) (Auto) 1.0 % (0.0-2.0) Neutrophils # (Auto) 8.4 10 ^3/uL (1.6-8.6) Lymphocytes # (Auto) 2.6 10 ^3/uL (0.4-5.4) Monocytes # (Auto) 1.0 10 ^3/uL (0-1.3) Eosinophils # (Auto) 0.1 10 ^3/uL (0-0.8) Basophils # (Auto) 0.1 10 ^3/uL (0-0.2) Nucleated Red Blood Cells 0.0 % Sodium Level 137 mmol/L (136-145) Potassium Level 3.8 mmol/L (3.5-5.1) Chloride Level 104 mmol/L (98-107) Carbon Dioxide Level 22 mmol/L (20-31) Anion Gap 11 (5-15) Blood Urea Nitrogen 13 mg/dL (9-23) Creatinine 1.26 mg/dL (0.700-1.30) Glomerular Filtration Rate Calc 67 mL/min (>90) BUN/Creatinine Ratio 10.3 (10.0-20.0) Serum Glucose 146 mg/dL (74-106) Calcium Level 12.8 mg/dL (8.7-10.4) Salicylates Level < 3.0 mg/dL (-30) Acetaminophen Level < 2.0 UG/ML (10.0-20.0) Plasma/Serum Blood Alcohol < 3.0 mg/dL (<10) Appearance: Stated age Psychomotor activity: WNL Behavioral: Cooperative Eye contact: Appropriate Speech: WNL Affect: Mood Congruent Mood: Depressed, Dysphoric Thought processes: Linear/Goal-directed Thought content: WNL Suicidal ideations: Present Homicidal ideations: Absent Orientation: Person, Place, Time, Situation Memory intact: Recent Intellect: Average Abstractability: WNL Concentration: Adequate Attention: Adequate Judgement: WNL Insight: Fair Vitals Vital Signs Date Time Temp Pulse Resp B/P (MAP) Pulse Ox O2 Delivery O2 Flow Rate FiO2 01/19/25 21:52 98.0 88 16 165/78 (107) 98 98.0 Treatment plan discussed: With staff Medication adjusted: Yes Labs ordered: No Psychotherapy provided: No Type: Voluntary History of Present Illness Reason for Consult : psychiatric evaluation PER ED PHYSICIAN NOTE: .54 y/o M present with c/c suicidal ideations. Patient was [id number] ambulance from private residence for initial c/c of right thigh and leg pain after having no relief following maximizing his prescribed Gabapentin medication dosage that he, usually, takes for the pain. Upon arrival to ED, patient began endorsing on having desires to end his life with no concrete plan in place or recent attempts. Pertinent medical history of anxiety, depression, suicidal ideations, chronic pain syndrome, and gout. Vitals were noted to have been stable and within normal limits. Patient denies any homicidal ideations, auditory or visual hallucinations, weakness, numbness, tingling, or further associated symptoms. PSYCHIATRIST HPI: The patient was seen and evaluated at [facility] ED via telepsychiatry platform.54 yr old male reported reported He has been suicidal due to being in so much pain. He took his gabapentin but he is still in so much pain that he can't sleep. He denied having suicidal ideation, plan or intent. She denied homicidal ideation, plan or intent. He denied having auditory or visual hallucinations. Past Psychiatric History : Diagnosed with anxiety, depression. 4-5 h opitalizations. Last discharged four days ago. 3 past suicide attempts, last cut his wrist a month ago. 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 Allergy to thioridazine, ketorolac Substance use: Denied use of alcohol and other substance use. Social History : Lives in a rented room in a house. Never , no children. 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 Diagnosis: UNSPECIFIED DEPRESSIVE DISORDER F32. A Formulation: This 54 yr old male appears to suffer from depression and chronic pain and is suicidal with a moderate risk for self harm. He warrants admission to U and agrees to voluntary admission to [facility]. Plan: 1.Transfer to [facility] when bed available. 2. Legal-Voluntary status, but meets criteria for involuntary hold on basis of danger to self. 3. Medication:start Gabapentin 600mg TID, Seroquel 50mg HS 4. Contact psychiatry if further evaluation or follow up is desired. 5. case discussed with ED physician, Dr Jennings. Assessment/Diagnosis/Plan Reviewed: Labs, Medications, Previous Orders KAYLEEN REYES MD Jan 20, 2025 00:19
[2025-01-20 08:44] VITALS: PULSE 78; RESP 16; O2SAT 98
[2025-01-20 10:28] LABS: Urine Protein, UAD Negative (Negative)
[2025-01-20 10:35] LABS: Amphetamine Screen, Urine Neg (NEGATIVE)
[2025-01-20 10:36] LABS: Opiate Scree,Urine Pos (NEGATIVE)
[2025-01-20 10:38] LABS: Barbiturate Scree,Urine Neg (NEGATIVE); Benzodiazephine Screen, Urine Neg (NEGATIVE); Cannabinoid Screen, Urine Neg (NEGATIVE); Cocaine Screen, Urine Neg (NEGATIVE); Phencyclidine Screen, Urine Neg (NEGATIVE)
[2025-01-20] MEDS: LORazepam 0.5 MG TAB PO ONE (11:32)
[2025-01-20 18:27] VITALS: BP 122/74; PULSE 77; RESP 16; TEMP 97.4; O2SAT 95
== END 2025-01-20 18:30 | disposition short-term general hospital (02) ==
LOC: ER 21:47 → EDBD 21:47 → ER 01-20 18:30
DX: R45.851 Suicidal ideations (principal); E11.9 Type 2 diabetes mellitus without complications; I10 Essential (primary) hypertension; E78.5 Hyperlipidemia, unspecified; F41.9 Anxiety disorder, unspecified; F32.A Depression, unspecified; G89.4 Chronic pain syndrome; E78.00 Pure hypercholesterolemia, unspecified; M10.9 Gout, unspecified; N40.0 Benign prostatic hyperplasia without lower urinary tract symptoms; Z91.51 Personal history of suicidal behavior; Z79.899 Other long term (current) drug therapy; Z88.1 Allergy status to other antibiotic agents
CPT/HCPCS: 36415; 80048; 80307; 80320; 80329; 81001; 82947; 85025

== ENCOUNTER 2025-04-23 17:29 | Emergency (ER) | payer OTHER, MEDICAID ==
[~2025-04-23] VITALS: Ht 175.3 cm; Wt 118.8 kg
[2025-04-23] MEDS ORDERED: PRED20TA2 PO (18:49)
[2025-04-23] MEDS ORDERED: COLC1CAP PO (18:49)
--- NOTE | 2025-04-23 18:49 | ED.PDOC ---
Musculoskeletal HPI Comments PT PRESENTED TO THE ER WITH C/C OF GOUT FLAIR UP X23 HOURS. PAIN ON RIGHT LEG. PATIENT REPORTS NEEDS REFILL OF HIS COLCHICINE STATES HE RAN OUT FEELS THIS IS THE REASON OF THE FLARE-UP. DENIES FEVER, CHILLS, INJURY, NAUSEA, VOMITING, CHEST PAIN, SHORTNESS OF BREATH OR DIZZINESS. REPORTS NO NUMBNESS OR WEAKNESS IN EXTREMITIES Chief Complaint: Lower Extremity Time Seen by MD: 18:02 Primary Care Provider: DENIES Reviewed Notes: Nurses Notes, Bobbin Washer Notes, Medications, Allergies Allergies: Coded Allergies: Ketorolac (Verified Allergy, Severe, 05/19/13) Tromethamine (Verified Allergy, Severe, 05/19/13) Thioridazine (Verified Allergy, Unknown, 11/02/24) Home Meds Active Scripts Prednisone (Prednisone) 20 Mg Tab, 40 MG PO DAILY@BREAKFAST for 4 Days, #8 MG Prov:JANA DELAROSA 04/23/25 Colchicine (Colchicine) 0.6 Mg Cap, 0.6 MG PO BID for 10 Days, #30 CAP Prov:JANA DELAROSA 04/23/25 Lorazepam (ATIVAN TABLET) 0.5 Mg Tb, 1 TAB PO DAILY for 5 Days, #5 TAB Prov:ZECHARIAH CALVO MD 12/18/21 Hydroxyzine Hcl (Hydroxyzine Hcl) 25 Mg Tab, 1 TAB PO Q8HPRN PRN for 7 Days, #21 TAB Caution if taking with trazodone as it will augment the sedation it causes. Prov:LINDA MANCILLA MD 05/30/21 Reported Medications Fluoxetine Hcl (Fluoxetine Hcl) 40 Mg Cap, #30 05/19/13 Trazodone Hcl (Trazodone Hcl) 100 Mg Tab, #60 05/19/13 Simvastatin (Simvastatin) 40 Mg Tab, #30 05/19/13 Niacin (Antihyperlipidemic) (Niaspan) 500 Mg Tab, #30 05/19/13 Information Source: Patient Mode of Arrival: EMS Past Medical History PAST MEDICAL HISTORY: Anxiety, Depression, DM, Gout, High Lipids, HTN, Kidney Stones, Thyroid Family History Family History: Reviewed,noncontributory to illness, Family hx of Cancer Social History Smoker: Non-Smoker Alcohol: Denies ETOH Use Drugs: Denies Drug Use Lives In: Home All Other Systems: Reviewed and Negative (SEE HPI) Physical Exam General Appearance: No Apparent Distress, Normal HEENT: Pharynx Normal Neck: Full Range of Motion, Non-Tender, Normal, Normal Inspection Respiratory: Lungs Clear, No Respiratory Distress, Normal Breath Sounds Cardiovascular: No Edema, No JVD, No Murmur, No Gallop, Normal Peripheral Pulses, Regular Rate/Rhythm Breast Exam: Deferred Gastrointestinal: No Organomegaly, Non Tender, No Pulsatile Mass, Normal Bowel Sounds, Soft Genitalia: Deferred Pelvic: Deferred Rectal: Deferred Extremities: No calf tenderness, Normal capillary refill, Normal inspection, Normal range of motion, Pedal edema (BILATERAL TRACE PEDAL EDEMA STRENGTH SENSORY AND MOTION INTACT.) Musculoskeletal : Apperance: Normal Neurologic: Alert, compensation agent II-XII nml as Tested, No Motor Deficits, Normal Affect, Normal Mood, No Sensory Deficits Cerebellar Function: Normal Reflexes: Normal Skin: Dry, Normal Color, Warm Lymphatic: No Adenopathy Was a procedure done? Was a procedure done?: No Differential Diagnosis EXT Differential Diagnosis: Cellulitis, Deep Vein Thrombosis, Compartment Syndrome, Sprain, Gout, Rheumatoid X-Ray, Labs, Meds, VS Vital Signs Date Time Temp Pulse Resp B/P (MAP) Pulse Ox O2 Delivery O2 Flow Rate FiO2 04/23/25 17:29 98.7 103 20 126/78 96 98.7 Current Medications Medications (Trade) Dose Ordered Sig/Dhaval Route Start Time Stop Time Status Last Admin Dexamethasone Sodium Phosphate (Decadron Injection) 10 mg ONCE ONCE IM 04/23/25 18:45 04/23/25 18:46 DC 04/23/25 19:03 Acetaminophen/ Hydrocodone Bitart (Dexter 5/325MG Tab) 1 tab ONCE ONCE PO 04/23/25 18:45 04/23/25 18:46 DC 04/23/25 19:03 X-Ray, Labs, Meds, VS Comment Patient given Dexter 5 mg and Decadron 10 mg IM reports improvement requesting discharge at this time. Refilled colchicine. Script trial of prednisone. Advised take medication as prescribed side effects discussed. Advised to follow up with his PCP in 2-3 days ER return precautions given patient indicates understanding agrees with discharge plan of care. Time of 1ST Reevaluation: 18:20 Reevaluation 1ST: Unchanged Time of 2ND Reevaluation: 19:05 Reevaluation 2ND: Improved Patient Education/Counseling: Diagnosis, Treatment, Need For Follow Up Family Education/Counseling: No Family Present Departure 1 Departure Time of Disposition: 19:05 Impression: Primary Impression: Acute gout Qualified Codes: M10.079 - Idiopathic gout, unspecified ankle and foot Disposition: 01 HOME / SELF CARE / HOMELESS Condition: Stable e-Prescriptions Prednisone (Prednisone) 20 Mg Tab 40 MG PO DAILY@BREAKFAST for 4 Days, #8 MG Prov: JANA DELAROSA 04/23/25 Colchicine (Colchicine) 0.6 Mg Cap 0.6 MG PO BID for 10 Days, #30 CAP Prov: JANA DELAROSA 04/23/25 Discharged With: Self Critical Care Note Critical Care Time?: No Stability Stability form required: JANA Fox Apr 23, 2025 18:49
[2025-04-23] MEDS: KETOROLAC TROMETH 60MG/2ML VIAL IM ONE (19:03)
[2025-04-23] MEDS: HYDROcodone-ACET 5/325MG TAB PO ONE (19:03)
[2025-04-23] MEDS: predniSONE 20 MG TAB PO ONE (19:23)
[2025-04-23 19:35] VITALS: BP 126/78; PULSE 103; RESP 20; TEMP 98.7; O2SAT 96
== END 2025-04-23 19:28 | disposition home or self-care (01) ==
LOC: ER 17:29 → EDBD 17:29 → ER 19:28
DX: M10.079 Idiopathic gout, unspecified ankle and foot (principal); I10 Essential (primary) hypertension; E11.9 Type 2 diabetes mellitus without complications; F32.A Depression, unspecified; F41.9 Anxiety disorder, unspecified; E78.5 Hyperlipidemia, unspecified; E03.9 Hypothyroidism, unspecified; Z79.52 Long term (current) use of systemic steroids; Z79.899 Other long term (current) drug therapy; Z87.442 Personal history of urinary calculi
CPT/HCPCS: 96372; 99283; J1100; J7512; J1885

== ENCOUNTER 2025-04-26 17:43 | Emergency (ER) | payer OTHER, MEDICAID ==
[~2025-04-26] VITALS: Ht 175.3 cm; Wt 120.0 kg
[~2025-04-26 17:43] MED LIST changes: +COLC1CAP PO; +PRED20TA2 PO
--- NOTE | 2025-04-26 19:09 | ED.PDOC ---
Musculoskeletal HPI Comments 54 y/o M presents with c/c of bilateral feet pain. Patient reports significant history of gout and having no relief during most recent flair up with prescribed Prednisone, Tramadol, and Colchicine use. Denial of any further acute symptoms. REVIEW OF SYSTEMS: General: No fever, no chills, HEENT: No neck pain, no blurred vision Cardiac: No chest pain. No palpitations. Lungs: No shortness of breath, GI: No abdominal pain, no vomiting Musculoskeletal: Generalized body aches, bilateral pain Skin: No rash, no wound Neuro: No headache, no dizziness, no syncope PHYSICAL EXAM: General: Awake, alert and oriented. No acute distress. Skin: Skin in warm, dry and intact without rashes or lesions. HEENT: The head is normocephalic and atraumatic. Conjunctivae are clear without exudates or hemorrhage. Sclera is non-icteric. Neck: Normal range of motion. No JVD. Cardiac: Regular rate Respiratory: No signs of respiratory distress. No Stridor. Extremities: Feet are normal appearing, with no laceration, bruising, or edema and with good DP pulse. Sensation intact. Remaining upper and lower extremities are atraumatic in appearance without deformity. Neurological: The patient is awake, alert and oriented to person, place, and time with normal speech. Speech is clear. There is no facial asymmetry. Normal gait Psychiatric: Appropriate mood and affect. Good judgement and insight. Chief Complaint: Lower Extremity Time Seen by MD: 18:30 Primary Care Provider: DENIES Reviewed Notes: Nurses Notes, Medications, Allergies Allergies: Coded Allergies: Ketorolac (Verified Allergy, Severe, 05/19/13) Tromethamine (Verified Allergy, Severe, 05/19/13) Thioridazine (Verified Allergy, Unknown, 11/02/24) Home Meds Active Scripts Prednisone (Prednisone) 20 Mg Tab, 40 MG PO DAILY@BREAKFAST for 4 Days, #8 MG Prov:JANA DELAROSA 04/23/25 Colchicine (Colchicine) 0.6 Mg Cap, 0.6 MG PO BID for 10 Days, #30 CAP Prov:JANA DELAROSA 04/23/25 Lorazepam (ATIVAN TABLET) 0.5 Mg Tb, 1 TAB PO DAILY for 5 Days, #5 TAB Prov:ZECHARIAH CALVO MD 12/18/21 Hydroxyzine Hcl (Hydroxyzine Hcl) 25 Mg Tab, 1 TAB PO Q8HPRN PRN for 7 Days, #21 TAB Caution if taking with trazodone as it will augment the sedation it causes. Prov:LINDA MANCILLA MD 05/30/21 Reported Medications Fluoxetine Hcl (Fluoxetine Hcl) 40 Mg Cap, #30 05/19/13 Trazodone Hcl (Trazodone Hcl) 100 Mg Tab, #60 05/19/13 Simvastatin (Simvastatin) 40 Mg Tab, #30 05/19/13 Niacin (Antihyperlipidemic) (Niaspan) 500 Mg Tab, #30 05/19/13 Information Source: Patient Mode of Arrival: EMS Past Medical History PAST MEDICAL HISTORY: Anxiety, Depression, DM, Gout, High Lipids, HTN, Kidney Stones, Thyroid Family History Family History: Reviewed,noncontributory to illness, Family hx of Cancer Social History Smoker: Non-Smoker Alcohol: Denies ETOH Use Drugs: Denies Drug Use Lives In: Home Was a procedure done? Was a procedure done?: No Differential Diagnosis EXT Differential Diagnosis: Sprain, Gout, Strain X-Ray, Labs, Meds, VS Vital Signs Date Time Temp Pulse Resp B/P (MAP) Pulse Ox O2 Delivery O2 Flow Rate FiO2 04/26/25 19:23 78 12 164/93 04/26/25 19:20 98.3 78 12 164/93 (116) 95 98.3 04/26/25 19:20 78 12 95 Room Air* 0 21 04/26/25 18:23 98.0 79 16 128/89 (102) 95 98.0 04/26/25 17:49 98.3 83 18 121/87 96 98.3 Current Medications Medications (Trade) Dose Ordered Sig/Dhaval Route Start Time Stop Time Status Last Admin Hydromorphone HCl (Dilaudid Injection) 0.8 mg ONCE ONCE IM 04/26/25 19:15 04/26/25 19:16 DC 04/26/25 19:23 Time of 1ST Reevaluation: 19:00 Reevaluation 1ST: Unchanged Patient Education/Counseling: Treatment, Need For Follow Up Family Education/Counseling: No Family Present Departure 1 Departure Time of Disposition: 19:35 Impression: Primary Impression: Acute gout Disposition: 01 HOME / SELF CARE / HOMELESS Condition: Stable Additional Instructions: ED DISCHARGE INSTRUCTIONS Instructions: Please read all instructions provided in this packet carefully. Continue medications for treatment of gout as previously prescribed Although you have been discharged from the Emergency Department, this does not mean that you have a "clean bill of health". No definitive diagnosis for your symptoms has been made today. It is possible that you are in the process of developing a serious illness. This is why you must return to the ED without fail if any new or worsening symptoms (especially if your symptoms include chest pain, trouble breathing, abdominal pain, fever, headache, confusion, trouble seeing, or trouble walking) It is also very important that you see a primary care provider (PCP) within the next 3-5 days to follow up. If you are unable to get an appointment, return to the ED for re-evaluation. Discharged With: Self Comments MDM: Patient well-appearing, nontoxic. Bilateral lower extremities neurovascularly intact. Advised prompt follow-up with PCP, return to the ED with any new, worsening or concerning symptoms. I reviewed the following notes from the pt's past medical encounters: April 23, 2025 encounter for acute gout Additional information was gathered from interviewing the following independent historians: N/A Decision regarding hospitalization or escalation of hospital level of care: Risks and benefits of admission for further treatment of patient's condition was considered however due to patient's stable condition patient will be discharged to follow up closely or return to care for worsening of condition or inability to follow up. Critical Care Note Critical Care Time?: No Stability Stability form required: No Heart Score Heart Score: Heart Score Response (Comments) Value History N/A 0 EKG N/A 0 Age N/A 0 Risk Factors N/A 0 Troponin N/A 0 Total 0 I personally scribed for LEOBARDO HUNTER MD ([email or web address]) on 04/26/25 at 19:09. Electronically submitted by Madan Borden ([email or web address]). LEOBARDO HUNTER MD Apr 26, 2025 19:09
[2025-04-26 19:20] VITALS: PULSE 78; RESP 12; TEMP 98.3; O2SAT 95
[2025-04-26] MEDS: HYDROmorphone HCL 2 MG/ML VL/or syr IM ONE (19:23)
[2025-04-26 19:51] VITALS: BP 118/77; PULSE 88; RESP 16
== END 2025-04-26 19:53 | disposition home or self-care (01) ==
LOC: EDUNIT# 17:43 → EDBD 17:43 → ER 17:43
DX: M10.9 Gout, unspecified (principal); I10 Essential (primary) hypertension; F41.9 Anxiety disorder, unspecified; E11.9 Type 2 diabetes mellitus without complications; Z79.899 Other long term (current) drug therapy
CPT/HCPCS: 96372; 99283; J1171

== ENCOUNTER 2025-04-28 03:35 | Emergency (ER) | payer OTHER, MEDICAID ==
[~2025-04-28] VITALS: Ht 177.8 cm; Wt 90.7 kg
--- NOTE | 2025-04-28 03:54 | ED.PDOC ---
History of Present Illness Chief Complaint: Suicidal Time Seen by MD: 03:42 Primary Care Provider: DENIES Allergies: Coded Allergies: Ketorolac (Verified Allergy, Severe, 05/19/13) Tromethamine (Verified Allergy, Severe, 05/19/13) Thioridazine (Verified Allergy, Unknown, 11/02/24) Home Meds Active Scripts Colchicine (Colchicine) 0.6 Mg Cap, 0.6 MG PO BID for 10 Days, #30 CAP Prov:JANA DELAROSAP 04/23/25 Lorazepam (ATIVAN TABLET) 0.5 Mg Tb, 1 TAB PO DAILY for 5 Days, #5 TAB Prov:ZECHARIAH CALVO MD 12/18/21 Hydroxyzine Hcl (Hydroxyzine Hcl) 25 Mg Tab, 1 TAB PO Q8HPRN PRN for 7 Days, #21 TAB Caution if taking with trazodone as it will augment the sedation it causes. Prov:LINDA MANCILLA MD 05/30/21 Reported Medications Fluoxetine Hcl (Fluoxetine Hcl) 40 Mg Cap, #30 05/19/13 Trazodone Hcl (Trazodone Hcl) 100 Mg Tab, #60 05/19/13 Simvastatin (Simvastatin) 40 Mg Tab, #30 05/19/13 Niacin (Antihyperlipidemic) (Niaspan) 500 Mg Tab, #30 05/19/13 Discontinued Scripts Prednisone (Prednisone) 20 Mg Tab, 40 MG PO DAILY@BREAKFAST for 4 Days, #8 MG Prov:JANA DELAROSA 04/23/25 Past Medical History PAST MEDICAL HISTORY: Anxiety, Depression, DM, Gout, High Lipids, HTN, Kidney Stones, Thyroid Family History Family History: Reviewed,noncontributory to illness, Family hx of Cancer Social History Smoker: Non-Smoker Alcohol: Denies ETOH Use Drugs: Denies Drug Use Lives In: Home Differential Dx Considerations may include: Differential diagnoses considered include: Abdominal aortic aneurysm, [place], esophageal rupture, intestinal obstruction, mesenteric ischemia, perforated viscus or solid organ rupture, CHF with hepatomegaly, pneumonia, abscess, appendicitis, biliary disease, diverticulitis, gastritis, gastroenteritis, hepatitis, hernia, inflammatory bowel disease, pancreatitis, peptic ulcer disease, urinary tract infection, ureteral colic, constipation, GERD, irritable syndrome, abdominal wall pain, nonspecific abdominal pain, herpes zoster, nephrolithiasis. X-Ray, Labs, Meds, VS Vital Signs Date Time Temp Pulse Resp B/P (MAP) Pulse Ox O2 Delivery O2 Flow Rate FiO2 04/28/25 03:50 98.3 71 18 139/99 99 98.3 SEPSIS Sepsis Screen Vital Signs Date Time Temp Pulse Resp B/P (MAP) Pulse Ox O2 Delivery O2 Flow Rate FiO2 04/28/25 03:50 98.3 71 18 139/99 99 98.3 LEOBARDO HUNTER MD Apr 28, 2025 03:54
[2025-04-28] MEDS: PREGABALIN CAPSULE 75 MG CAP PO ONE (04:00)
--- NOTE | 2025-04-28 04:18 | ED.PDOC ---
History of Present Illness HPI Comments 54 yo male presents via EMS for abdominal pain and suicidal ideation. patient was at the crisis center. He states he started having abodminal pain today associated with diarrhea. No bloody stool. No vomiting. He is also suffering from b/l foot pain which he attributes to gout and states he has had this pain chronically for years. The crisis center contacted EMS after natalien reported SI. He states he plans to overdose on medication. REVIEW OF SYSTEMS: General: No fever, no chills, HEENT: No neck pain, no blurred vision Cardiac: No chest pain. No palpitations. Lungs: No shortness of breath, GI: No abdominal pain, no vomiting Musculoskeletal: No joint pain , no back pain Skin: No rash, no wound Neuro: No headache, no dizziness, no syncope PHYSICAL EXAM: General: Awake, alert and oriented. No acute distress. Skin: Skin in warm, dry and intact. Appropriate color for ethnicity. HEENT: The head is normocephalic and atraumatic. Conjunctivae are clear without exudates or hemorrhage. Sclera is non-icteric. EOM are intact. No signs of nystagmus. Eyelids are normal in appearance without swelling or lesions. Oral mucosa is pink and moist Neck: The neck is supple with normal range of motion. No JVD. Cardiac: Heart rate and rhythm are normal. No murmurs, gallops, or rubs are auscultated. Respiratory: No signs of respiratory distress. Lung sounds are clear in all lobes bilaterally without rales, rhonchi, or wheezes. Abdominal: Abdomen is soft, generally-tender with distention, no guarding or rigidity. Feet: Bilateral DP pulses intact. No edema. Good capillary refill. Sensation intact. Neurological: The patient is awake, alert and oriented to person, place, and time with normal speech. Speech is clear. There is no facial asymmetry. Psychiatric: Tearful affect Chief Complaint: Suicidal Time Seen by MD: 03:42 Primary Care Provider: DENIES Allergies: Coded Allergies: Ketorolac (Verified Allergy, Severe, 05/19/13) Tromethamine (Verified Allergy, Severe, 05/19/13) Thioridazine (Verified Allergy, Unknown, 11/02/24) Home Meds Active Scripts Colchicine (Colchicine) 0.6 Mg Cap, 0.6 MG PO BID for 10 Days, #30 CAP Prov:JANA DELAROSA [facility] 04/23/25 Lorazepam (ATIVAN TABLET) 0.5 Mg Tb, 1 TAB PO DAILY for 5 Days, #5 TAB Prov:ZECHARIAH CALVO MD 12/18/21 Hydroxyzine Hcl (Hydroxyzine Hcl) 25 Mg Tab, 1 TAB PO Q8HPRN PRN for 7 Days, #21 TAB Caution if taking with trazodone as it will augment the sedation it causes. Prov:LINDA MANCILLA MD 05/30/21 Reported Medications Fluoxetine Hcl (Fluoxetine Hcl) 40 Mg Cap, #30 05/19/13 Trazodone Hcl (Trazodone Hcl) 100 Mg Tab, #60 05/19/13 Simvastatin (Simvastatin) 40 Mg Tab, #30 05/19/13 Niacin (Antihyperlipidemic) (Niaspan) 500 Mg Tab, #30 05/19/13 Discontinued Scripts Prednisone (Prednisone) 20 Mg Tab, 40 MG PO DAILY@BREAKFAST for 4 Days, #8 MG Prov:JANA DELAROSA [facility] 04/23/25 Mode of Arrival: EMS Past Medical History PAST MEDICAL HISTORY: Anxiety, Depression, DM, Gout, High Lipids, HTN, Kidney Stones, Thyroid Surgical History: Denies all surgeries Family History Family History: Reviewed,noncontributory to illness, Family hx of Cancer Social History Smoker: Non-Smoker Alcohol: Denies ETOH Use Drugs: Denies Drug Use Lives In: Home Was a procedure done? Was a procedure done?: No Differential Dx Considerations may include: Differential diagnoses considered include: Abdominal aortic aneurysm, [place], esophageal rupture, intestinal obstruction, mesenteric ischemia, perforated viscus or solid organ rupture, CHF with hepatomegaly, pneumonia, abscess, appendicitis, biliary disease, diverticulitis, gastritis, gastroenteritis, hepatitis, hernia, inflammatory bowel disease, pancreatitis, peptic ulcer disease, urinary tract infection, ureteral colic, constipation, GERD, irritable syndrome, abdominal wall pain, nonspecific abdominal pain, herpes zoster, nephrolithiasis. X-Ray, Labs, Meds, VS Vital Signs Date Time Temp Pulse Resp B/P (MAP) Pulse Ox O2 Delivery O2 Flow Rate FiO2 04/28/25 07:40 63 18 93 Room Air* 0 21 04/28/25 07:39 98.3 63 18 118/76 (90) 93 98.3 04/28/25 05:30 98.2 62 16 146/85 (105) 98 98.2 04/28/25 05:30 68 16 96 Room Air* 0 21 04/28/25 03:50 98.3 71 18 139/99 99 98.3 Lab Test 04/28/25 04:48 Range/Units White Blood Count 9.9 4.4-10.8 10^3/uL Red Blood Count 5.57 4.5-5.90 10^6/uL Hemoglobin 18.7 H 13.5-17.5 g/dL Hematocrit 53.3 H 41.0-53.0 % Mean Corpuscular Volume 95.7 80.0-100.0 fL Mean Corpuscular Hemoglobin 33.5 H 28.0-32.0 pg Mean Corpuscular Hemoglobin Concent 35.0 32.0-36.0 g/dL Red Cell Distribution Width 13.4 11.8-14.3 % Platelet Count 292 140-450 10^3/uL Mean Platelet Volume 7.5 6.9-10.8 fL Neutrophils (%) (Auto) 69.1 37.0-80.0 % Lymphocytes (%) (Auto) 22.1 10.0-50.0 % Monocytes (%) (Auto) 7.9 0.0-12.0 % Eosinophils (%) (Auto) 0.3 0.0-7.0 % Basophils (%) (Auto) 0.6 0.0-2.0 % Neutrophils # (Auto) 6.9 1.6-8.6 10 ^3/uL Lymphocytes # (Auto) 2.2 0.4-5.4 10 ^3/uL Monocytes # (Auto) 0.8 0-1.3 10 ^3/uL Eosinophils # (Auto) 0 0-0.8 10 ^3/uL Basophils # (Auto) 0.1 0-0.2 10 ^3/uL Nucleated Red Blood Cells 0.1 % Sodium Level 140 136-145 mmol/L Potassium Level 3.9 3.5-5.1 mmol/L Chloride Level 107 98-107 mmol/L Carbon Dioxide Level 24 20-31 mmol/L Anion Gap 9 5-15 Blood Urea Nitrogen 14 9-23 mg/dL Creatinine 1.10 0.700-1.30 mg/dL Glomerular Filtration Rate Calc 79 >90 mL/min BUN/Creatinine Ratio 12.7 10.0-20.0 Serum Glucose 122 H 74-106 mg/dL Calcium Level 11.1 H 8.7-10.4 mg/dL Plasma/Serum Blood Alcohol < 3.0 <10 mg/dL Current Medications Medications (Trade) Dose Ordered Sig/Dhaval Route Start Time Stop Time Status Last Admin Acetaminophen (Tylenol Tablet Or Capsule) 1,000 mg ONCE ONCE PO 04/28/25 04:30 04/28/25 04:31 DC 04/28/25 04:30 Tramadol HCl (Ultram) 50 mg ONCE ONCE PO 04/28/25 04:30 04/28/25 04:31 DC 04/28/25 05:25 Gabapentin (Neurontin Capsule) 300 mg ONCE ONCE PO 04/28/25 08:00 04/28/25 08:20 DC 04/28/25 08:26 Patient alert. Vitals stable. Answering all questions. Moving all extremities. No sign of distress. Continues to ask for pain medication. WBC within normal limits. He is medically cleared. Psychiatric evaluation. Time of 1ST Reevaluation: 10:13 Reevaluation 1ST: Unchanged Patient Education/Counseling: Diagnosis, Treatment, Prognosis Family Education/Counseling: No Family Present SEPSIS Sepsis Screen Date sepsis recognized/suspect: Apr 28, 2025 Time Sepsis recognized/suspect: 404 Recent Procedure: No On Antibiotic Therapy: No Respiratory Rate >20: No Heart Rate >90: No Temp<36 C (96.8 F) or >38.3 C: No SBP <90 or MAP <65 mmHG: No New Acute Mental Status Change: No Is the patient on CPAP, BIPAP,: No Physician Orders * Psychiatric Consult (04/28/25 02:21) Sitter At Bedside (04/28/25 04:28) Urinalysis (04/28/25 04:28) Drug Screen (04/28/25 04:28) Soc Telemed Psych Consult (04/28/25 04:28) * Supervisor Garage Consult (04/28/25 ) Regular Diet (04/28/25 Breakfast) Gabapentin Capsule (Neurontin Capsule) (04/28/25 14:00) Quetiapine Fumarate Tablet (Seroquel Tab (04/28/25 22:00) Vital Signs Date Time Temp Pulse Resp B/P (MAP) Pulse Ox O2 Delivery O2 Flow Rate FiO2 04/28/25 07:40 63 18 93 Room Air* 0 21 04/28/25 07:39 98.3 63 18 118/76 (90) 93 98.3 04/28/25 05:30 98.2 62 16 146/85 (105) 98 98.2 04/28/25 05:30 68 16 96 Room Air* 0 21 04/28/25 03:50 98.3 71 18 139/99 99 98.3 Laboratory Tests Test 04/28/25 04:48 White Blood Count 9.9 10^3/uL (4.4-10.8) Medications Medications Dose Ordered Sig/Dhaval Route Start Time Stop Time Status Last Admin Dose Admin Acetaminophen 1,000 mg ONCE ONCE PO 04/28/25 04:30 04/28/25 04:31 DC 04/28/25 04:30 Gabapentin 300 mg ONCE ONCE PO 04/28/25 08:00 04/28/25 08:20 DC 04/28/25 08:26 Tramadol HCl 50 mg ONCE ONCE PO 04/28/25 04:30 04/28/25 04:31 DC 04/28/25 05:25 Departure 1 Departure Time of Disposition: 10:12 Impression: Primary Impression: Suicidal ideation Disposition: 30 STILL A PATIENT Condition: Good Discharged With: Self Critical Care Note Critical Care Time?: No LEOBARDO HUNTER MD Apr 28, 2025 04:18 ZECHARIAH CALVO MD Apr 28, 2025 10:14
[2025-04-28] MEDS: ACETAMINOPHEN 500 MG TAB or CAP PO ONE (04:30)
[2025-04-28 05:03] LABS: Nucleated Red Blood Cells % 0.1 %
[2025-04-28 05:05] LABS: Hematocrit 53.3 % (41.0-53.0); Hemoglobin 18.7 g/dL (13.5-17.5); Mean Corpuscular Hemoglobin 33.5 pg (28.0-32.0); Mean Corpuscular Volume 95.7 fL (80.0-100.0)
[2025-04-28 05:14] LABS: Chloride 107 mmol/L (98-107); Potassium 3.9 mmol/L (3.5-5.1); Sodium 140 mmol/L (136-145)
[2025-04-28 05:15] LABS: Anion Gap 9 (5-15); Carbon Dioxide 24 mmol/L (20-31)
[2025-04-28 05:17] LABS: Calcium 11.1 mg/dL (8.7-10.4)
[2025-04-28 05:20] LABS: BUN/Creatinine Ratio 12.7 (10.0-20.0); Blood Urea Nitrogen 14 mg/dL (9-23)
[2025-04-28 05:21] LABS: Glucose 122 mg/dL (74-106)
[2025-04-28 05:30] VITALS: PULSE 68; RESP 16; O2SAT 96
--- NOTE | 2025-04-28 07:27 | DVHINCON2 ---
Date of Service if different f: Apr 28, 2025 Time of Service: 07:12 Consultation ([facility]) Consulting Physician: KAYLEEN REYES MD Labs Laboratory Tests Test 04/28/25 04:48 White Blood Count 9.9 10^3/uL (4.4-10.8) Red Blood Count 5.57 10^6/uL (4.5-5.90) Hemoglobin 18.7 g/dL (13.5-17.5) Hematocrit 53.3 % (41.0-53.0) Mean Corpuscular Volume 95.7 fL (80.0-100.0) Mean Corpuscular Hemoglobin 33.5 pg (28.0-32.0) Mean Corpuscular Hemoglobin Concent 35.0 g/dL (32.0-36.0) Red Cell Distribution Width 13.4 % (11.8-14.3) Platelet Count 292 10^3/uL (140-450) Mean Platelet Volume 7.5 fL (6.9-10.8) Neutrophils (%) (Auto) 69.1 % (37.0-80.0) Lymphocytes (%) (Auto) 22.1 % (10.0-50.0) Monocytes (%) (Auto) 7.9 % (0.0-12.0) Eosinophils (%) (Auto) 0.3 % (0.0-7.0) Basophils (%) (Auto) 0.6 % (0.0-2.0) Neutrophils # (Auto) 6.9 10 ^3/uL (1.6-8.6) Lymphocytes # (Auto) 2.2 10 ^3/uL (0.4-5.4) Monocytes # (Auto) 0.8 10 ^3/uL (0-1.3) Eosinophils # (Auto) 0 10 ^3/uL (0-0.8) Basophils # (Auto) 0.1 10 ^3/uL (0-0.2) Nucleated Red Blood Cells 0.1 % Sodium Level 140 mmol/L (136-145) Potassium Level 3.9 mmol/L (3.5-5.1) Chloride Level 107 mmol/L (98-107) Carbon Dioxide Level 24 mmol/L (20-31) Anion Gap 9 (5-15) Blood Urea Nitrogen 14 mg/dL (9-23) Creatinine 1.10 mg/dL (0.700-1.30) Glomerular Filtration Rate Calc 79 mL/min (>90) BUN/Creatinine Ratio 12.7 (10.0-20.0) Serum Glucose 122 mg/dL (74-106) Calcium Level 11.1 mg/dL (8.7-10.4) Plasma/Serum Blood Alcohol < 3.0 mg/dL (<10) Appearance: Stated age Psychomotor activity: Restless Behavioral: Cooperative Eye contact: Appropriate Speech: WNL Affect: Mood Congruent, Labile Mood: Depressed, Dysphoric Thought processes: Linear/Goal-directed Suicidal ideations: Present Homicidal ideations: Absent Orientation: Person, Place, Situation Memory intact: Recent Intellect: Average Abstractability: WNL Concentration: Adequate Attention: Adequate Judgement: WNL Insight: Fair Vitals Vital Signs Date Time Temp Pulse Resp B/P (MAP) Pulse Ox O2 Delivery O2 Flow Rate FiO2 04/28/25 05:30 98.2 62 16 146/85 (105) 98 98.2 04/28/25 05:30 Room Air* 0 21 Treatment plan discussed: With staff Medication adjusted: Yes Labs ordered: No Psychotherapy provided: No Type: Voluntary History of Present Illness Reason for Consult : psychiatric evaluation PER ED PHYSICIAN NOTE:54 yo male presents via EMS for abdominal pain and suicidal ideation. patient was at the crisis center. He states he started having abodminal pain today associated with diarrhea. No bloody stool. No vomiting. He is also suffering from b/l foot pain which he attributes to gout and states he has had this pain chronically for years. The crisis center contacted EMS after natalien reported SI. He states he plans to overdose on medication. PSYCHIATRIST HPI: The patient was seen and evaluated at [facility] ED via telepsychiatry platform.54 yr old male reported reported he is feeling suicidal for the past week because his gout is unbearable. He said he has unbearable pain throughout his body. He reported he tried to overdose on tramadol last night. He noted his sleep has been poor with a few hours each night. His mood has been depressed, hopeless and helpless. He feels like his body is on fire.He reported he had taken gabapentin in the past and it had helped with the pain. He agrees to voluntary admission to the behavioral health unit. . He denied homicidal ideation, plan or intent. He denied having auditory or visual hallucinations. Past Psychiatric History : Diagnosed with anxiety, depression. six hospitalizations. Last hospitalized in December 2024. 3 past suicide attempts, last cut his wrist a month ago. 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 Social History : Lives in a rented room in a house. Never , no children. Worked as [employer]. Diagnosis: UNSPECIFIED DEPRESSIVE DISORDER F32. A Formulation: This 54 yr old male appears to suffer from depression which is exacerbated by chronic pain and is a moderate risk for suicide. He warrants admission to [facility] and agrees to voluntary admission to [facility]. Plan: 1.Transfer to [facility] when bed available. 2. Legal-Voluntary status, but meets criteria for involuntary hold on basis of danger to self. 3. Medication:start Gabapentin 600mg TID, Seroquel 100 mg HS 4. Contact psychiatry if further evaluation or follow up is desired. 5. case discussed with ED physician, Dr Lang. Assessment/Diagnosis/Plan Reviewed: Labs, Medications KAYLEEN REYES MD Apr 28, 2025 07:13
[2025-04-28 07:40] VITALS: PULSE 63; RESP 18; O2SAT 93
[2025-04-28] MEDS: GABAPENTIN 300 MG CAP PO ONE ×2 (08:26→13:56)
[2025-04-28 12:42] LABS: Urine Protein, UAD TRACE (Negative)
[2025-04-28 12:58] LABS: Amphetamine Screen, Urine Neg (NEGATIVE); Barbiturate Scree,Urine Neg (NEGATIVE); Benzodiazephine Screen, Urine Neg (NEGATIVE); Cannabinoid Screen, Urine Neg (NEGATIVE); Cocaine Screen, Urine Neg (NEGATIVE); Opiate Scree,Urine Neg (NEGATIVE); Phencyclidine Screen, Urine Neg (NEGATIVE)
[2025-04-28 17:29] VITALS: BP 128/82; PULSE 52; RESP 16; TEMP 98; O2SAT 97
== END 2025-04-28 17:30 | disposition home or self-care (01) ==
LOC: EDBD 03:35 → ER 03:42
DX: R45.851 Suicidal ideations (principal); I10 Essential (primary) hypertension; E11.9 Type 2 diabetes mellitus without complications; F41.9 Anxiety disorder, unspecified; F32.A Depression, unspecified; Z79.899 Other long term (current) drug therapy; Z87.442 Personal history of urinary calculi; Z91.51 Personal history of suicidal behavior
CPT/HCPCS: 36415; 80048; 80307; 80320; 81001; 85025

== ENCOUNTER 2025-05-19 19:47 | Emergency (ER) | payer OTHER, MEDICAID ==
[~2025-05-19] VITALS: Ht 177.8 cm; Wt 117.3 kg
[~2025-05-19 19:47] MED LIST changes: -COLC1CAP PO; -PRED20TA2 PO
[2025-05-19 19:54] VITALS: BP 112/81; PULSE 91; RESP 18; TEMP 98.1; O2SAT 97
--- NOTE | 2025-05-19 20:40 | ED.PDOC ---
Musculoskeletal HPI Comments 54 year old male presents to ER for evaluation of chronic bilateral foot pain. Patient with PMH significant for gout, anxiety and depression presents to ER with complaints of bilateral foot pain x "2 years". He rates his current pain a 10/10 to bilateral feet and denies any injury/skin changes. Patient presents to ER ambulatory on arrival, with steady gait, in no distress with vitals stable and upon arrival to [facility] patient states he is also feeling "suicidal", denying any plan or HI. Patient endorses no further symptoms/complaints Chief Complaint: Lower Extremity Time Seen by MD: 19:58 Primary Care Provider: DENIES Reviewed Notes: Nurses Notes, Medications, Allergies Allergies: Coded Allergies: Ketorolac (Verified Allergy, Severe, 05/19/13) Tromethamine (Verified Allergy, Severe, 05/19/13) Thioridazine (Verified Allergy, Unknown, 11/02/24) Home Meds Active Scripts Lorazepam (ATIVAN TABLET) 0.5 Mg Tb, 1 TAB PO DAILY for 5 Days, #5 TAB Prov:ZECHARIAH CALVO MD 12/18/21 Hydroxyzine Hcl (Hydroxyzine Hcl) 25 Mg Tab, 1 TAB PO Q8HPRN PRN for 7 Days, #21 TAB Caution if taking with trazodone as it will augment the sedation it causes. Prov:LINDA MANCILLA MD 05/30/21 Reported Medications Fluoxetine Hcl (Fluoxetine Hcl) 40 Mg Cap, #30 05/19/13 Trazodone Hcl (Trazodone Hcl) 100 Mg Tab, #60 05/19/13 Simvastatin (Simvastatin) 40 Mg Tab, #30 05/19/13 Niacin (Antihyperlipidemic) (Niaspan) 500 Mg Tab, #30 05/19/13 Information Source: Patient Mode of Arrival: EMS Past Medical History PAST MEDICAL HISTORY: Anxiety, Depression, DM, Gout, High Lipids, HTN, Kidney Stones, Thyroid Surgical History: Denies all surgeries Family History Family History: Unknown Social History Smoker: Non-Smoker Alcohol: Denies ETOH Use Drugs: Denies Drug Use Lives In: Home Constitutional: denies: chills, diaphoresis, fatigue, fever, malaise, sweats, w eakness, others EENTM: denies: blurred vision, double vision, ear bleeding, ear discharge, ear drainage, ear pain, ear ringing, eye pain, eye redness, hearing loss, mouth pain, mouth swelling, nasal discharge, nose bleeding, nose congestion, nose pain, photophobia, tearing, throat pain, throat swelling, voice changes, others Respiratory: denies: cough, hemoptysis, orthopnea, SOB at rest, shortness of breath, SOB with excertion, stridor, wheezing, others Cardiovascular: denies: chest pain, dizzy spells, diaphoresis, Dyspnea on exertion, edema, irregular heart beat, left arm pain, lightheadedness, palpitations, PND, syncope, others Gastrointestinal: denies: abdomen distended, abdominal pain, blood streaked bowels, constipated, diarrhea, dysphagia, difficulty swallowing, hematemesis, melena, nausea, poor appetite, poor fluid intake, rectal bleeding, rectal pain, vomiting, others Genitourinary: denies: burning, dysuria, flank pain, frequency, hematuria, incontinence, penile discharge, penile sore, pain, testicle pain, testicle swe lling, urgency, others Neurological: denies: dizziness, fainting, headache, left sided numbness, left sided weakness, numbness, paresthesia, pre-existing deficit, right sided numbness, right sided weakness, seizure, speech problems, tingling, tremors, weakness, others Musculoskeletal: reports: others (As stated in HPI) Integumetry: denies: bruises, change in color, change in hair/nails, dryness, laceration, lesions, lumps, rash, wounds, others Allergic/Immunocompromised: denies: Difficulty Healing, Frequent Infections, Hives, Itching, others Hematologic/Lymphatic: denies: anemia, blood clots, easy bleeding, easy bruising, swollen glands, others Endocrine: denies: excessive hunger, excessive sweating, excessive thirst, excessive urination, flushing, intolerance to cold, intolerance to heat, unexplained weight gain, unexplained weight loss, others Psychiatric: reports: others (As stated in HPI) Physical Exam General Appearance: No Apparent Distress HEENT: Normal ENT Inspection, PERRL/EOMI, Pharynx Normal, TMs Normal Neck: Full Range of Motion, Non-Tender, Normal Respiratory: Chest Non-Tender, Lungs Clear, No Accessory Muscle Use, No Respiratory Distress, Normal Breath Sounds Cardiovascular: No Murmur, No Gallop, Regular Rate/Rhythm Breast Exam: Deferred Gastrointestinal: NOT DONE Genitalia: Deferred Pelvic: Deferred Rectal: Deferred Extremities: No calf tenderness, Normal capillary refill, Normal range of motion Musculoskeletal : Extremity Location: Foot (Slight TTP/minimal erythema noted to dorsal surface of bilateral feet. No crepitus/fluctuance or deformities noted. Steady gait noted) Neurologic: Alert, milled rubber tender II-XII nml as Tested, No Motor Deficits, Normal Affect, Normal Mood, No Sensory Deficits Cerebellar Function: Normal Reflexes: Normal Skin: Dry, Warm Peripheral Pulses: 2+ dorsalis pedis (R), 2+ dorsalis pedis (L), 2+ Radial (R), 2+ Radial (L), 2+ Brachial (R), 2+ Brachial (L) Lymphatic: No Adenopathy Was a procedure done? Was a procedure done?: No Sedation Sedation?: No Differential Diagnosis EXT Differential Diagnosis: Cellulitis, Fracture, Dislocation, Neurovascular injury X-Ray, Labs, Meds, VS Vital Signs Date Time Temp Pulse Resp B/P (MAP) Pulse Ox O2 Delivery O2 Flow Rate FiO2 05/19/25 19:54 98.1 91 18 112/81 97 98.1 Lab Test 05/19/25 20:58 Range/Units White Blood Count 12.6 H 4.4-10.8 10^3/uL Red Blood Count 5.22 4.5-5.90 10^6/uL Hemoglobin 17.7 H 13.5-17.5 g/dL Hematocrit 49.2 41.0-53.0 % Mean Corpuscular Volume 94.2 80.0-100.0 fL Mean Corpuscular Hemoglobin 34.0 H 28.0-32.0 pg Mean Corpuscular Hemoglobin Concent 36.0 32.0-36.0 g/dL Red Cell Distribution Width 13.2 11.8-14.3 % Platelet Count 384 140-450 10^3/uL Mean Platelet Volume 7.6 6.9-10.8 fL Neutrophils (%) (Auto) 71.5 37.0-80.0 % Lymphocytes (%) (Auto) 19.7 10.0-50.0 % Monocytes (%) (Auto) 5.9 0.0-12.0 % Eosinophils (%) (Auto) 2.3 0.0-7.0 % Basophils (%) (Auto) 0.6 0.0-2.0 % Neutrophils # (Auto) 9.0 H 1.6-8.6 10 ^3/uL Lymphocytes # (Auto) 2.5 0.4-5.4 10 ^3/uL Monocytes # (Auto) 0.7 0-1.3 10 ^3/uL Eosinophils # (Auto) 0.3 0-0.8 10 ^3/uL Basophils # (Auto) 0.1 0-0.2 10 ^3/uL Nucleated Red Blood Cells 1.6 % Sodium Level 141 136-145 mmol/L Potassium Level 4.4 3.5-5.1 mmol/L Chloride Level 108 H 98-107 mmol/L Carbon Dioxide Level 22 20-31 mmol/L Anion Gap 11 5-15 Blood Urea Nitrogen 13 9-23 mg/dL Creatinine 1.26 0.700-1.30 mg/dL Glomerular Filtration Rate Calc 67 >90 mL/min BUN/Creatinine Ratio 10.3 10.0-20.0 Serum Glucose 135 H 74-106 mg/dL Uric Acid 9.0 3.7-9.2 mg/dL Calcium Level 9.6 8.7-10.4 mg/dL Total Bilirubin 0.5 0.2-1.0 mg/dL Aspartate Amino Transferase (AST) 18 13-40 U/L Alanine Aminotransferase (ALT) 33 7-40 U/L Alkaline Phosphatase 102 46-116 U/L Total Protein 7.3 5.7-8.2 g/dL Albumin 4.7 3.2-4.8 g/dL Salicylates Level < 3.0 -30 mg/dL Acetaminophen Level 5.0 L 10.0-20.0 UG/ML Plasma/Serum Blood Alcohol < 3.0 <10 mg/dL PATIENT: FERNANDO MISTRY JR CACCT: [id number]: [id number] : 1970 LOC: ER ROOM / BED: / AGE / SEX: 54 / M ADM STATUS: REG ER SERVICE 2143 ORDERING PHYSICIAN: ERIN TUCKER PROCEDURE(s): CXR1 - CHEST XRAY 1 VIEW REASON: cough ORDER NUMBER(s): [id number], ACCESSION NUMBER(s): [id number] CHEST RADIOGRAPH Indication: cough Technique: 1 view Comparison: XY CHEST XRAY 1 VIEW on DOS: 05/23/24, XY CHEST XRAY 1 VIEW on DOS: 10/08/23, CHEST XRAY 1 VIEW on DOS: 07/29/22, CXR1 on DOS: 07/29/22 FINDINGS: Lines and Tubes: None. Lungs/Pleura: No focal consolidation, pleural effusion or pneumothorax. Cardiomediastinum: Unremarkable. Other: No acute osseous abnormality. IMPRESSION: 1. No acute cardiopulmonary abnormality. ATED BY: OCTAVIO NIELSEN MD DICTATED DATE/TIME: 05/19/252235 SIGNED BY: OCTAVIO NIELSEN MD SIGNED DATE/TIME: 05/19/252235 CC: Prednisone to 40 mg p.o. ordered [place] 5/325 mg p.o. ordered Chest x-ray reviewed 22:14- Patient admitted that he is not suicidal and "just wanted a bed to sleep in", denying any suicidal intent or plan and is requesting to be discharged with transportation requested back home. Patient remains calm, cooperative and no evidence of acute psychiatry emergency Urinalysis ordered - patient refused to give urine sample Remainder of medical clearance labs reviewed and patient medically stable for discharge Advised to f/u with PCP and psychiatrist in 1-2 days Patient alert and oriented x 4 prior to discharge. Patient verbalized understanding and agreeable with current plan of care Advised to return to ER immediately if symptoms worsen Images Reviewed?: Images reviewed and evaluated by me Time of 1ST Reevaluation: 20:50 Reevaluation 1ST: N/A Time of 2ND Reevaluation: 22:54 Reevaluation 2ND: Improved Patient Education/Counseling: Diagnosis, Treatment, Prognosis, Need For Follow Up Family Education/Counseling: No Family Present Departure 1 Departure Time of Disposition: 22:58 Impression: Primary Impression: Cellulitis of both feet Disposition: 01 HOME / SELF CARE / HOMELESS Condition: Stable e-Prescriptions Acetaminophen (Acetaminophen) 500 Mg Tab 500 MG PO Q4HPRN, #30 TAB 0 Refills Prov: ERIN TUCKER 05/19/25 Sulfamethoxazole W/Trimethopri (Bactrim Ds Tablet) 1 Tab Tb 1 TAB PO BID for 7 Days, #14 TAB 0 Refills Prov: ERIN TUCKER 05/19/25 Discharged With: Friend Critical Care Note Critical Care Time?: No Stability Stability form required: No Heart Score Heart Score: Heart Score Response (Comments) Value History N/A 0 EKG N/A 0 Age N/A 0 Risk Factors N/A 0 Troponin N/A 0 Total 0 ERIN TUCKER May 19, 2025 20:40
[2025-05-19 21:17] LABS: Hemoglobin 17.7 g/dL (13.5-17.5)
[2025-05-19 21:18] LABS: Hematocrit 49.2 % (41.0-53.0); Mean Corpuscular Hemoglobin 34.0 pg (28.0-32.0); Mean Corpuscular Volume 94.2 fL (80.0-100.0); Nucleated Red Blood Cells % 1.6 %
[2025-05-19 21:28] LABS: Alanine Aminotransferase 33 U/L (7-40); Albumin 4.7 g/dL (3.2-4.8); Alkaline Phosphatase 102 U/L (46-116); Anion Gap 11 (5-15); BUN/Creatinine Ratio 10.3 (10.0-20.0); Bilirubin, Total 0.5 mg/dL (0.2-1.0); Blood Urea Nitrogen 13 mg/dL (9-23); Calcium 9.6 mg/dL (8.7-10.4); Carbon Dioxide 22 mmol/L (20-31); Potassium 4.4 mmol/L (3.5-5.1); Sodium 141 mmol/L (136-145); Total Protein 7.3 g/dL (5.7-8.2)
[2025-05-19 21:44] LABS: Acetaminophen 5.0 UG/ML (10.0-20.0); Salicylate < 3.0 mg/dL (-30)
[2025-05-19 21:47] LABS: Chloride 108 mmol/L (98-107); Glucose 135 mg/dL (74-106)
[2025-05-19 21:56] LABS: Uric Acid 9.0 mg/dL (3.7-9.2)
--- NOTE | 2025-05-19 22:38 | DVHINCON2 ---
Date of Service if different f: May 19, 2025 Time of Service: 22:37 Consult Consult Note Psych consult was canceled by ED provider as pt feigned SI to seek overnight custodial in ED Madan Bond MD Plan discussed with: Other MADAN BOND MD May 19, 2025 22:38
--- NOTE | 2025-05-19 22:38 | DVH ---
CHEST RADIOGRAPH Indication: cough Technique: 1 view Comparison: XY CHEST XRAY 1 VIEW on DOS: 05/23/24, XY CHEST XRAY 1 VIEW on DOS: 10/08/23, CHEST XRAY 1 VIEW on DOS: 07/29/22, CXR1 on DOS: 07/29/22 FINDINGS: Lines and Tubes: None. Lungs/Pleura: No focal consolidation, pleural effusion or pneumothorax. Cardiomediastinum: Unremarkable. Other: No acute osseous abnormality. IMPRESSION: 1. No acute cardiopulmonary abnormality.
[2025-05-19] MEDS ORDERED: BACDST PO (23:00)
[2025-05-19] MEDS ORDERED: ACET500T58 PO (23:00)
[2025-05-19] MEDS: predniSONE 20 MG TAB PO ONE (23:35)
[2025-05-19] MEDS: HYDROcodone-ACET 5/325MG TAB PO ONE (23:35)
== END 2025-05-19 23:35 | disposition home or self-care (01) ==
LOC: ER 19:47 → EDBD 19:47 → ER 23:35
DX: L03.115 Cellulitis of right lower limb (principal); L03.116 Cellulitis of left lower limb; F32.A Depression, unspecified; E11.9 Type 2 diabetes mellitus without complications; F41.9 Anxiety disorder, unspecified; I10 Essential (primary) hypertension; Z79.899 Other long term (current) drug therapy
CPT/HCPCS: 36415; 71045; 80053; 80320; 80329; 84550; 85025

== ENCOUNTER 2025-06-18 11:26 | Emergency (ER) | payer MEDICAID, OTHER ==
[~2025-06-18] VITALS: Ht 175.3 cm; Wt 109.0 kg
[~2025-06-18 11:26] MED LIST changes: +ACET500T58 PO; +BACDST PO
[2025-06-18 12:30] VITALS: BP 127/88; PULSE 96; RESP 20; TEMP 99; O2SAT 96
--- NOTE | 2025-06-18 12:31 | ED.PDOC ---
Musculoskeletal HPI Comments A 54 YEAR OLD MALE PRESENTS TO THE ED WITH COMPLAINT OF BILATERAL FOOT PAIN AND SWELLING. PATIENT STATES HE HAS A HISTORY OF GOUT AND HAS BEEN EXPERIENCING BILATERAL FOOT PAIN AND SWELLING OFF AND ON FOR THE PAST 1 MONTH WITH WORSENING SYMPTOMS OVER THE LAST 2 DAYS. PATIENT DENIES INJURY TO THE AFFECTED AREA, FEVER, CHILLS, SHORTNESS OF BREATH, CHEST PAIN, ABDOMINAL PAIN, NAUSEA, VOMITING, HEADACHE, OR OTHER COMPLAINTS. NO OTHER SYMPTOMS OR MODIFYING FACTORS AT THIS TIME. PATIENT IS ALERT, ORIENTED X 4, AND HAS STEADY GAIT. Chief Complaint: Lower Extremity Time Seen by MD: 11:41 Primary Care Provider: JUAREZ Reviewed Notes: Nurses Notes, Labor Relations Consultant Notes, Medications, Allergies Allergies: Coded Allergies: Ketorolac (Verified Allergy, Severe, 05/19/13) Tromethamine (Verified Allergy, Severe, 05/19/13) Thioridazine (Verified Allergy, Unknown, 11/02/24) Home Meds Active Scripts Acetaminophen (Acetaminophen) 500 Mg Tab, 500 MG PO Q4HPRN, #30 TAB 0 Refills Prov:ERIN TUCKER 05/19/25 Sulfamethoxazole W/Trimethopri (Bactrim Ds Tablet) 1 Tab Tb, 1 TAB PO BID for 7 Days, #14 TAB 0 Refills Prov:ERIN TUCKER 05/19/25 Lorazepam (ATIVAN TABLET) 0.5 Mg Tb, 1 TAB PO DAILY for 5 Days, #5 TAB Prov:ZECHARIAH CALVO MD 12/18/21 Hydroxyzine Hcl (Hydroxyzine Hcl) 25 Mg Tab, 1 TAB PO Q8HPRN PRN for 7 Days, #21 TAB Caution if taking with trazodone as it will augment the sedation it causes. Prov:LINDA MANCILLA MD 05/30/21 Reported Medications Fluoxetine Hcl (Fluoxetine Hcl) 40 Mg Cap, #30 05/19/13 Trazodone Hcl (Trazodone Hcl) 100 Mg Tab, #60 05/19/13 Simvastatin (Simvastatin) 40 Mg Tab, #30 05/19/13 Niacin (Antihyperlipidemic) (Niaspan) 500 Mg Tab, #30 05/19/13 Information Source: Patient, Emergency Med Personnel Mode of Arrival: EMS Location: Bilateral Extremity Location: Foot Timing: Days Prehospital treatment: None Severity: Moderate Able to Move Extremity: Yes Bear Weight: Limited Pain: Moderate Mechanism: No Trauma, Spontaneous Circumstances: Spontaneous Onset of Symptoms: Spontaneous Symptoms: Swelling, Pain DVT Risk Factors: NONE Last Tetanus: Unknown History of: Gout Associated signs and symptoms: Foot pain Past Medical History PAST MEDICAL HISTORY: Anxiety, Depression, Gout, High Lipids, HTN, Kidney Stones, Thyroid Surgical History: Denies all surgeries Family History Family History: Reviewed,noncontributory to illness Social History Smoker: Non-Smoker Alcohol: Denies ETOH Use Drugs: Denies Drug Use Lives In: Home Constitutional: denies: chills, diaphoresis, fatigue, fever, malaise, sweats, weakness, others EENTM: denies: blurred vision, double vision, ear bleeding, ear discharge, ear drainage, ear pain, ear ringing, eye pain, eye redness, hearing loss, mouth pain, mouth swelling, nasal discharge, nose bleeding, nose congestion, nose pain, photophobia, tearing, throat pain, throat swelling, voice changes, others Respiratory: denies: cough, hemoptysis, orthopnea, SOB at rest, shortness of breath, SOB with excertion, stridor, wheezing, others Cardiovascular: denies: chest pain, dizzy spells, diaphoresis, Dyspnea on exertion, edema, irregular heart beat, left arm pain, lightheadedness, palpitations, PND, syncope, others Gastrointestinal: denies: abdomen distended, abdominal pain, blood streaked bowels, constipated, diarrhea, dysphagia, difficulty swallowing, hematemesis, melena, nausea, poor appetite, poor fluid intake, rectal bleeding, rectal pain, vomiting, others Genitourinary: denies: burning, dysuria, flank pain, frequency, hematuria, incontinence, penile discharge, penile sore, pain, testicle pain, testicle swelling, urgency, others Neurological: denies: dizziness, fainting, headache, left sided numbness, left sided weakness, numbness, paresthesia, pre-existing deficit, right sided numbness, right sided weakness, seizure, speech problems, tingling, tremors, weakness, others Musculoskeletal: reports: gout, joint pain, joint swelling, others (BILATERAL FOOT PAIN AND SWELLING); denies: back pain, muscle pain, muscle stiffness, neck pain Integumetry: denies: bruises, change in color, change in hair/nails, dryness, laceration, lesions, lumps, rash, wounds, others Allergic/Immunocompromised: denies: Difficulty Healing, Frequent Infections, Hives, Itching, others Hematologic/Lymphatic: denies: anemia, blood clots, easy bleeding, easy bruising, swollen glands, others Endocrine: denies: excessive hunger, excessive sweating, excessive thirst, excessive urination, flushing, intolerance to cold, intolerance to heat, unexplained weight gain, unexplained weight loss, others Psychiatric: denies: anxiety, bipolar disorder, depression, hopeless, panic disorder, schizophrenia, sleepless, suicidal, others All Other Systems: Reviewed and Negative Physical Exam General Appearance: No Apparent Distress, Obese HEENT: Normal ENT Inspection, PERRL/EOMI, Pharynx Normal, TMs Normal Neck: Full Range of Motion, Non-Tender, Normal, Normal Inspection Respiratory: Chest Non-Tender, Lungs Clear, No Accessory Muscle Use, No Respiratory Distress, Normal Breath Sounds Cardiovascular: No Edema, No JVD, No Murmur, No Gallop, Normal Peripheral Pulses, Regular Rate/Rhythm Breast Exam: Deferred Gastrointestinal: No Organomegaly, Non Tender, No Pulsatile Mass, Normal Bowel Sounds, Soft Genitalia: Deferred Pelvic: Deferred Rectal: Deferred Extremities: No calf tenderness, Normal capillary refill, Normal range of motion, No pedal edema, Tender (WITH LOCALIZED REDNESS AND MILD SWELLING AND HEA T ON BILATERAL FOOT, NO OPEN WOUND SEEN. +GOUT. ) Musculoskeletal : Apperance: Normal Neurologic: Alert, paraffiner II-XII nml as Tested, No Motor Deficits, Normal Affect, Normal Mood, No Sensory Deficits Cerebellar Function: Normal Reflexes: Normal Skin: Dry, Normal Color, Warm Peripheral Pulses: 2+ carotid (R), 2+ carotid (L), 2+ dorsalis pedis (R), 2+ dorsalis pedis (L) Lymphatic: No Adenopathy Was a procedure done? Was a procedure done?: No Differential Diagnosis EXT Differential Diagnosis: Sprain, Gout, Strain, Arthritis X-Ray, Labs, Meds, VS Vital Signs Date Time Temp Pulse Resp B/P (MAP) Pulse Ox O2 Delivery O2 Flow Rate FiO2 06/18/25 11:28 99.0 96 20 127/88 96 99.0 X-Ray, Labs, Meds, VS Comment EXTERNAL MEDICAL RECORDS REVIEWED: [NONE] INDEPENDENT HISTORIANS: [NONE] SOCIAL DETERMINANTS OF HEALTH: [NONE] LABS ORDERED: NONE REVIEWED AND INTERPRETED RESULTS: NONE IMAGING ORDERED: NONE TREATMENTS ORDERED: SOLU-MEDROL 125 MG IM, NOR[place] 10/325 MG P.O. PROCEDURES PERFORMED: NONE CRITICAL CARE TIME: NONE I HAVE DISCUSSED THE PATIENT WITH THE ATTENDING PHYSICIAN DR. PEREZ AND HE AGREES WITH THE PATIENT'S PLAN OF CARE AND DISPOSITION. BASED ON HISTORY OF PRESENT ILLNESS, AND PHYSICAL EXAM, PATIENT WILL BE DISCHARGED HOME. DISCUSSED PLAN FOR DISCHARGE HOME WITH RX [COLCHICINE AND ULTRAM]. MEDICATION WARNINGS GIVEN. SHARED DECISION MAKING: PATIENT INSTRUCTED TO FOLLOW UP WITH PRIMARY CARE PROVIDER IN 1-2 DAYS FOR RE-EVALUATION OF SYMPTOMS. PATIENT VERBALIZES UNDERSTANDING TO RETURN TO ED FOR NEW OR WORSENING SYMPTOMS OR IF FOLLOW UP WITH PCP CANNOT BE OBTAINED. PATIENT FEELS COMFORTABLE GOING HOME AT THIS TIME. ALL QUESTIONS ADDRESSED AT TIME OF DISCHARGE. Time of 1ST Reevaluation: 13:00 Reevaluation 1ST: Improved Patient Education/Counseling: Diagnosis, Treatment, Need For Follow Up Family Education/Counseling: Diagnosis, Treatment, Need For Follow Up Medical Screening: No EMC Exist At This Time Departure 1 Departure Time of Disposition: 13:00 Impression: Primary Impression: Gout of both feet Disposition: 01 HOME / SELF CARE / HOMELESS Condition: Stable Additional Instructions: FOLLOW-UP WITH PCP IN 1 TO 2 DAYS. TAKE MEDICATIONS PRESCRIBED. RETURN TO ED FOR ANY NEW OR WORSENING SYMPTOMS. e-Prescriptions Colchicine (Colchicine) 0.6 Mg Cap 0.6 MG PO BID, #30 CAP Prov: MARIAN SORTO 06/18/25 Tramadol HCl (Tramadol HCl) 50 Mg Tab 50 MG PO BID, #20 TAB Prov: MARIAN SORTO 06/18/25 Discharged With: Self, Relative Critical Care Note Critical Care Time?: No Stability Stability form required: No I personally scribed for MARIAN SORTO ([email or web address]) on 06/18/25 at 12:31. Electronically submitted by Clifford Santana ([email or web address]). MARIAN SORTO Jun 18, 2025 12:31
[2025-06-18] MEDS: methylPREDNISolone SOD SUCC 125 MG/2 ML VL IM ONE (12:35)
[2025-06-18] MEDS: HYDROcodone-ACET 10/325MG TAB PO ONE (12:36)
[2025-06-18] MEDS ORDERED: TRAM-626 PO (12:40)
[2025-06-18] MEDS ORDERED: COLC1CAP PO (12:40)
== END 2025-06-18 12:54 | disposition home or self-care (01) ==
LOC: EDBD 11:26 → EDUNIT# 11:26 → ER 11:26
DX: M10.071 Idiopathic gout, right ankle and foot (principal); M10.072 Idiopathic gout, left ankle and foot; I10 Essential (primary) hypertension; F41.9 Anxiety disorder, unspecified; Z79.899 Other long term (current) drug therapy
CPT/HCPCS: 96372; 99283; J2919

== ENCOUNTER 2025-06-24 14:10 | Emergency (ER) | payer OTHER ==
[~2025-06-24] VITALS: Ht 175.3 cm; Wt 109.0 kg
[~2025-06-24 14:10] MED LIST changes: +COLC1CAP PO; +TRAM-626 PO
--- NOTE | 2025-06-24 14:43 | ECG ---
[facility] Test Date: 2025-06-24 Test Time: 14:22:17 Pat Name: FERNANDO MISTRY Department: [facility] ED Patient ID: [facility]-[id number] Room: Gender: M Billing Associate: kerri : 1970 Requested By: ZECHARIAH CALVO Order Number: [id number] Reading MD: Mk Landa Measurements Intervals [place] Rate: 104 P: 57 KS: 180 QRS: -37 QRSD: 90 T: 47 QT: 358 QTc: 471 Interpretive Statements Sinus tachycardia Ventricular premature complex Abnormal R-wave progression, late transition Inferior infarct, old Electronically Signed On 06-26-2025 10:32:12 PST by Mk Landa Please click the below link to view image of tracing.
--- NOTE | 2025-06-24 14:48 | ED.PDOC ---
History of Present Illness HPI Comments 54-year-old male RJ with prior medical history of anxiety, depression, high lipids, hypertension, kidney stones, thyroid, gout, diabetes and a chief complaint of SI. EMS report on picking of the patient at home status post patient taking 26 of Seroquel at 1100 today. When EMS arrived on scene they found the patient, for which was systolic 60s, and satting at 80% room air. Patient does state on having auditory hallucinations of harming himself. Patient currently denies any HI. Denies any other symptoms at this time. Denies chills, fever, N/V/D, SOB, CP. No other associated symptoms, modifiers, recent injuries or sick contacts present at this time. Chief Complaint: Overdose Time Seen by MD: 14:15 Primary Care Provider: JUAREZ Reviewed Notes: Nurses Notes, Circuit Court Magistrate Notes, Medications, Allergies Allergies: Coded Allergies: Ketorolac (Verified Allergy, Severe, 05/19/13) Tromethamine (Verified Allergy, Severe, 05/19/13) Thioridazine (Verified Allergy, Unknown, 11/02/24) Home Meds Active Scripts Colchicine (Colchicine) 0.6 Mg Cap, 0.6 MG PO BID, #30 CAP Prov:MARIAN SORTO 06/18/25 Tramadol HCl (Tramadol HCl) 50 Mg Tab, 50 MG PO BID, #20 TAB Prov:MARIAN SORTO 06/18/25 Acetaminophen (Acetaminophen) 500 Mg Tab, 500 MG PO Q4HPRN, #30 TAB 0 Refills Prov:ERIN TUCKER 05/19/25 Sulfamethoxazole W/Trimethopri (Bactrim Ds Tablet) 1 Tab Tb, 1 TAB PO BID for 7 Days, #14 TAB 0 Refills Prov:ERIN TUCKER 05/19/25 Lorazepam (ATIVAN TABLET) 0.5 Mg Tb, 1 TAB PO DAILY for 5 Days, #5 TAB Prov:ZECHARIAH CALVO MD 12/18/21 Hydroxyzine Hcl (Hydroxyzine Hcl) 25 Mg Tab, 1 TAB PO Q8HPRN PRN for 7 Days, #21 TAB Caution if taking with trazodone as it will augment the sedation it causes. Prov:LINDA MANCILLA MD 05/30/21 Reported Medications Fluoxetine Hcl (Fluoxetine Hcl) 40 Mg Cap, #30 05/19/13 Trazodone Hcl (Trazodone Hcl) 100 Mg Tab, #60 05/19/13 Simvastatin (Simvastatin) 40 Mg Tab, #30 05/19/13 Niacin (Antihyperlipidemic) (Niaspan) 500 Mg Tab, #30 05/19/13 Information Source: Patient, Emergency Med Personnel Mode of Arrival: EMS Severity: Moderate Timing: Minutes Duration: Since onset, Minutes Prehospital treatment: None (No) Past Medical History PAST MEDICAL HISTORY: Anxiety, Depression, DM, Gout, High Lipids, HTN, Kidney Stones, Thyroid Surgical History: Denies all surgeries Family History Family History: Reviewed,noncontributory to illness, Unknown Social History Smoker: Non-Smoker Alcohol: Denies ETOH Use Drugs: Denies Drug Use Lives In: Home Constitutional: denies: chills, diaphoresis, fatigue, fever, malaise, sweats, weakness, others EENTM: denies: blurred vision, double vision, ear bleeding, ear discharge, ear drainage, ear pain, ear ringing, eye pain, eye redness, hearing loss, mouth pain, mouth swelling, nasal discharge, nose bleeding, nose congestion, nose pain, photophobia, tearing, throat pain, throat swelling, voice changes, others Respiratory: denies: cough, hemoptysis, orthopnea, SOB at rest, shortness of breath, SOB with excertion, stridor, wheezing, others Cardiovascular: denies: chest pain, dizzy spells, diaphoresis, Dyspnea on exertion, edema, irregular heart beat, left arm pain, lightheadedness, palpitations, PND, syncope, others Gastrointestinal: denies: abdomen distended, abdominal pain, blood streaked bowels, constipated, diarrhea, dysphagia, difficulty swallowing, hematemesis, me natalio, nausea, poor appetite, poor fluid intake, rectal bleeding, rectal pain, vomiting, others Genitourinary: denies: burning, dysuria, flank pain, frequency, hematuria, incontinence, penile discharge, penile sore, pain, testicle pain, testicle swelling, urgency, others Neurological: denies: dizziness, fainting, headache, left sided numbness, left sided weakness, numbness, paresthesia, pre-existing deficit, right sided numbness, right sided weakness, seizure, speech problems, tingling, tremors, weakness, others Musculoskeletal: denies: back pain, gout, joint pain, joint swelling, muscle pain, muscle stiffness, neck pain, others Integumetry: denies: bruises, change in color, change in hair/nails, dryness, laceration, lesions, lumps, rash, wounds, others Allergic/Immunocompromised: denies: Difficulty Healing, Frequent Infections, Hives, Itching, others Hematologic/Lymphatic: denies: anemia, blood clots, easy bleeding, easy bruising, swollen glands, others Endocrine: denies: excessive hunger, excessive sweating, excessive thirst, excessive urination, flushing, intolerance to cold, intolerance to heat, unexplained weight gain, unexplained weight loss, others Psychiatric: reports: suicidal; denies: anxiety, bipolar disorder, depression, hopeless, panic disorder, schizophrenia, sleepless, others All Other Systems: Reviewed and Negative Physical Exam General Appearance: Moderate Distress, Normal HEENT: Normal ENT Inspection, Pharynx Normal, TMs Normal Neck: Full Range of Motion, Non-Tender, Normal, Normal Inspection Respiratory: Chest Non-Tender, Lungs Clear, No Accessory Muscle Use, No Respiratory Distress, Normal Breath Sounds Cardiovascular: No Edema, No JVD, No Murmur, No Gallop, Normal Peripheral Pulses, Regular Rate/Rhythm Breast Exam: Deferred Gastrointestinal: No Organomegaly, Non Tender, No Pulsatile Mass, Normal Bowel Sounds, Soft Genitalia: Deferred Pelvic: Deferred Rectal: Deferred Extremities: No calf tenderness, Normal capillary refill, Normal inspection, Normal range of motion, Non-tender, No pedal edema Musculoskeletal : Apperance: Normal Neurologic: Alert, biofuels product manager II-XII nml as Tested, No Motor Deficits, Normal Affect, Normal Mood, No Sensory Deficits Cerebellar Function: NOT DONE Reflexes: NOT DONE Skin: Dry, Normal Color, Warm Peripheral Pulses: 3+ Radial (R), 3+ Radial (L) Lymphatic: No Adenopathy Was a procedure done? Was a procedure done?: No Differential Dx Considerations may include: Schizophrenia Anxiety X-Ray, Labs, Meds, VS Vital Signs Date Time Temp Pulse Resp B/P (MAP) Pulse Ox O2 Delivery O2 Flow Rate FiO2 06/24/25 14:34 98.2 110 15 104/73 94 98.2 06/24/25 14:22 104 Patient alert. Vitals stable. Answering questions. Moving all extremities. States that he has suicidal ideation. Hearing voices to take pills to harm himself. EKG reviewed does not show any acute changes. Medically cleared. Psychiatric evaluation. Time of 1ST Reevaluation: 14:48 Reevaluation 1ST: Unchanged Patient Education/Counseling: Diagnosis, Treatment, Prognosis Family Education/Counseling: No Family Present SEPSIS Sepsis Screen Date sepsis recognized/suspect: Jun 24, 2025 Time Sepsis recognized/suspect: 1410 Recent Procedure: No On Antibiotic Therapy: No Respiratory Rate >20: No Heart Rate >90: Yes Temp<36 C (96.8 F) or >38.3 C: No SBP <90 or MAP <65 mmHG: No New Acute Mental Status Change: No Is the patient on CPAP, BIPAP,: No Physician Orders Drug Screen (06/24/25 14:32) Acetaminophen (06/24/25 14:32) Salicylate (06/24/25 14:32) *Tele Psych Consult (06/24/25 14:32) Vital Signs Date Time Temp Pulse Resp B/P (MAP) Pulse Ox O2 Delivery O2 Flow Rate FiO2 06/24/25 14:34 98.2 110 15 104/73 94 98.2 06/24/25 14:22 104 Departure 1 Departure Time of Disposition: 15:09 Impression: Primary Impression: Suicidal ideation Disposition: 30 STILL A PATIENT Condition: Good Critical Care Note Critical Care Time?: No Stability Stability form required: No Heart Score Heart Score: Heart Score Response (Comments) Value History Slightly Suspicious 0 EKG Normal 0 Age 45-64 1 Risk Factors 1 or 2 risk factors 1 Troponin Normal limit 0 Total 2 I personally scribed for ZECHARIAH CALVO MD ([email or web address]) on 06/24/25 at 14:48. Electronically submitted by Paul Milian ([email or web address]). ZECHARIAH CALVO MD Jun 24, 2025 14:48
[2025-06-24 15:43] LABS: Acetaminophen < 2.0 UG/ML (10.0-20.0); Salicylate < 3.0 mg/dL (-30)
[2025-06-24 22:51] LABS: Hematocrit 44.0 % (41.0-53.0); Hemoglobin 15.6 g/dL (13.5-17.5); Mean Corpuscular Hemoglobin 33.0 pg (28.0-32.0); Mean Corpuscular Volume 93.2 fL (80.0-100.0); Nucleated Red Blood Cells % 0.1 %
[2025-06-24 23:10] LABS: Alanine Aminotransferase 33 U/L (7-40); Albumin 4.7 g/dL (3.2-4.8); Alkaline Phosphatase 99 U/L (46-116); Anion Gap 11 (5-15); BUN/Creatinine Ratio 10.1 (10.0-20.0); Bilirubin, Total 0.7 mg/dL (0.2-1.0); Blood Urea Nitrogen 15 mg/dL (9-23); Calcium 9.9 mg/dL (8.7-10.4); Carbon Dioxide 25 mmol/L (20-31); Chloride 106 mmol/L (98-107); Magnesium 2.2 mg/dL (1.6-2.6); Sodium 142 mmol/L (136-145); Total Protein 7.4 g/dL (5.7-8.2)
[2025-06-24 23:16] LABS: Glucose 139 mg/dL (74-106); Potassium 3.3 mmol/L (3.5-5.1)
--- NOTE | 2025-06-25 03:16 | DVHINCON2 ---
Date of Service if different f: Jun 25, 2025 Time of Service: 03:16 Consult Consult Note PSYCHIATRY ED NEW CONSULT HPI: 54 yo pt with PPH of depression and anxiety presents to ED [facility] friend for safety, psychiatric stabilization and possible med initiation/optimization in setting of depression and SA via intentional OD of ~ 25 quetiapine 300 mg tabs. Psychiatry consulted for safety evaluation and recommendations in context of cur rent presentation. Of note, pt w/ recent ED visits for similar CC/presentation and is limited historian at baseline Pt reports over past several weeks experiencing ongoing depressed mood, hopelessness, helplessness, negative thoughts, isolation, loss of interest, CAH to hurt self, decreased energy, amotivation and non-specific anxiety symptoms. Also intermittent SI that are fleeting, subsequently intentionally OD on ~ 25 quetiapine 300 mg tabs. Reports primary stress as recent/ongoing excruciating shoulder/testicular/foot pain that's radiating for past several months and passing of his GF from cancer late last year. Denies HI/manic symptoms Pt currently does not have psychiatrist/therapist out in community although has sought outpt MH services in past Currently rx'd Buspar 15 mg bid, Duloxetine 30 mg bid, quetiapine 200 mg qhs, and Gabapentin 600 mg tid, remains overall med compliant although c/o diaphoresis 2/2 gabapentin, does have hx of med noncompliance Prior psych meds include abilify, effexor, trazodone Denies self medicating mood symptoms with ETOH, THC or IDU, denies dependency hx SH: Never , no children, unemployed, lives with friend/couch surfing/homelessness hx, no legal issues, limited support system noted. Unknown trauma hx. Unknown FH No acute medical issues although complains of diffuse body aches, ongoing shoulder/foot pain and multiple chronic medical issues. Denies hx of seizures/TBI, or recent head injuries, NKDA Does have hx of suicide attempts primarily via OD x 2 resulting in prior psych hospitalizations including most recent admission at [facility] 09/2024 for SI. Denies history of violence, unprovoked aggression, or assaultive behaviors. Does not have access to firearms. Currently endorses passive SI and AH MSE: General Appearance/Behavior: Alert/partially awake; appears older than stated age, overweight/obese, fair grooming and hygiene; calm and cooperative, no PMA/PMR Speech: coherent, rrr Thought Process: linear, logical, bit hopeless Thought Content: Abnormal Thoughts and Perceptions: None Homicidality / Violent Thoughts: denies HI Suicidality: passive SI Hallucinations: +AH Delusions: denies paranoia, persecutory, or grandiose delusions Obsessions /compulsions : None Judgment and Insight: fair/questionable judgment with somewhat fair / limited insight Mood & Affect: "still depressed" with mood-congruent, bit labile, appropriate Orientation: oriented to person, place, time Attention/Concentration: appears intact Memory: grossly intact A/P: 54 yo pt with PPH of depression and anxiety presents to ED [facility] friend for safety, psychiatric stabilization and possible med initiation/optimization in setting of depression and SA via intentional OD of ~ 25 quetiapine 300 mg tabs. Of note, pt w/ recent ED visits for similar CC/presentation and is limited historian at baseline Pt s/p significant SA via OD, hx of several ODs in past, currently expressing some SI in context of acute/ongoing shoulder/testicular/foot and body pain (see hpi) - pt may have underlying somatoform disorder. Limited protective factors presently. No outpt MH services at present Acute risk remains elevated and hence is appropriate for inpatient psychiatry admission Pt will benefit from inpatient psych admission for safety, psychiatric stabilization and possible medication optimization. Pt willing to transfer to inpt psych hospitalization voluntarily. Consider 5150 hold for DTS if needed for transfer or if no voluntary beds are available Primary Diagnosis: Major Depressive disorder, recurrent, w/PF. R/o Somatoform disorder Recommend vol transfer to inpt psych facility for higher level of care 1:1 sitter is recommended Recommend HOLDING of current outpt med regimen in setting of OD for 72 hrs - Buspar 15 mg bid, Duloxetine 30 mg bid, quetiapine 300 mg qhs, and Gabapentin 600 mg tid Defer any med initiation/adjustments to inpt psych facility If patient later refuses voluntary hospitalization/requests to be discharged from ED prior to transfer, pt needs to be placed on 5150 DTS hold Pt verbalized understanding and is receptive to above tx plan This case was discussed with ED nurse/provider and all parties in agreement with above tx plan Madan Bond MD Plan discussed with: Patient MADAN BOND MD Jun 25, 2025 03:16
[2025-06-25 08:00] VITALS: PULSE 98; RESP 18; O2SAT 93
[2025-06-25 18:00] VITALS: RESP 18
[2025-06-25 19:35] VITALS: O2SAT 91
--- NOTE | 2025-06-26 08:31 | ECG ---
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
[2025-06-26] MEDS: ACETAMINOPHEN 325 MG TAB PO ONE (21:09)
[2025-06-27 08:08] VITALS: BP 101/76; PULSE 83; RESP 18; TEMP 98; O2SAT 95
== END 2025-06-27 08:31 | disposition short-term general hospital (02) ==
LOC: ER 14:10 → EDBD 14:10 → ER 06-27 08:31
DX: R45.851 Suicidal ideations (principal); I10 Essential (primary) hypertension; F41.9 Anxiety disorder, unspecified; F32.A Depression, unspecified; E78.5 Hyperlipidemia, unspecified; E11.9 Type 2 diabetes mellitus without complications; M10.9 Gout, unspecified; Z79.899 Other long term (current) drug therapy; Z87.442 Personal history of urinary calculi
CPT/HCPCS: 36415; 80053; 80320; 80329; 82947; 82962; 83735; 85025; 93005